=== PATIENT | female | born 1940 | race Caucasian/White ===

== ENCOUNTER 2016-12-30 16:05 | Emergency (ER) | payer MEDICARE, BC ==
--- NOTE | 2016-12-30 16:32 | EDM.PDOC ---
ED HPI GENERAL MEDICAL PROBLEM - General Chief Complaint: Chest Pain Stated Complaint: CHEST PAIN Time Seen by Provider: 12/30/16 16:22 - History of Present Illness INITIAL COMMENTS - FREE TEXT/NARRATIVE: 76-year-old female presents emergency room with chest pain. Patient has no prior history of heart problems. She developed some chest pain yesterday seems to improve somewhat with [id number] treatments, however she noticed her blood pressure was little elevated today so was a little concerned about this. This chest pain is mostly substernal in the inferior portion of the chest she did have some neck discomfort earlier today this is resolved at this point she has some substernal chest discomfort. Patient has a hiatal hernia. She's had a negative stress test but this is many years ago she does not take aspirin. The patient currently takes omeprazole. She does not smoke. Epigastric Pain Score (Numeric/FACES): 5 - Related Data Allergies Allergy/AdvReac Type Severity Reaction Status Date / Time Penicillins Allergy Cannot Verified 11/29/15 14:48 Remember atorvastatin AdvReac Muscle Verified 11/29/15 14:48 Aches Home Meds: Home Meds Fluticasone/Salmeterol [Advair 100-50] 1 puff INH BID 07/09/13 [History] Omeprazole 20 mg PO DAILY 07/09/13 [History] Multivitamin [Poly-Vitamin] 1 each PO DAILY 11/29/15 [History] Cholecalciferol (Vitamin D3) [Vitamin D] 1 tab PO DAILY 12/30/16 [History] Sucralfate [Carafate] 1 gm PO QIDACANDBED #60 tablet 12/30/16 [Rx] Past Medical History HEENT History: Reports: Impaired Vision, Other (See Below) Other HEENT History: wears glasses Respiratory History: Reports: Asthma Gastrointestinal History: Reports: GERD Genitourinary History: Reports: Urinary Incontinence 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: - Past Surgical History GI Surgical History: Reports: Appendectomy, Colonoscopy, Hernia Repair/Other Female Surgical History: Reports: Hysterectomy, Oophorectomy, Other (See Below) Social & Family History - Family History Family Medical History: Noncontributory - Tobacco Use Smoking Status *Q: Never Smoker Second Hand Smoke Exposure: No - Caffeine Use Caffeine Use: Reports: Coffee - Alcohol Use Days Per Week of Alcohol Use: 0 - Recreational Drug Use Recreational Drug Use: No ED ROS GENERAL - Review of Systems Review Of Systems: See Below Constitutional: Reports: No Symptoms HEENT: Reports: No Symptoms Respiratory: Reports: No Symptoms Cardiovascular: Reports: Chest Pain. Denies: Dyspnea on Exertion, Edema, Lightheadedness, Palpitations GI/Abdominal: Reports: Abdominal Pain (She has some epigastric discomfort at times). Denies: No Symptoms, Black Stool, Bloody Stool, Constipation, Diarrhea , Nausea, Vomiting : Reports: No Symptoms Neurological: Reports: No Symptoms ED EXAM, GENERAL - Physical Exam Exam: See Below Exam Limited By: No Limitations General Appearance: Alert, No Apparent Distress Head: Atraumatic, Normocephalic Neck: Normal Inspection, Supple, Non-Tender, Full Range of Motion Respiratory/Chest: No Respiratory Distress, Lungs Clear, Normal Breath Sounds Cardiovascular: Regular Rate, Rhythm, No Edema, No Murmur GI/Abdominal: Normal Bowel Sounds, Soft, Other (Epigastric discomfort). No: Distended, Guarding, Rigid, Rebound EKG INTERPRETATION EKG Date: 12/30/16 Rhythm: NSR P-Wave: Present QRS: Normal ST-T: Normal QT: Normal Comparison: No Change EKG Interpretation Comments: EKG no changes noted from July 2014 Course - Vital Signs Last Recorded V/S: Last Vital Signs Temp 36.5 C 12/30/16 16:15 Pulse 80 12/30/16 16:15 Resp 18 12/30/16 16:15 BP 173/89 H 12/30/16 16:15 Pulse Ox 96 12/30/16 16:15 - Orders/Labs/Meds Orders: Active Orders 24 hr Category Date Time Status EKG 12 Lead [EKG Documentation Completion] [RC] STAT Care 12/30/16 16:15 Active Chest 1V Frontal [CR] Stat Exams 12/30/16 16:44 Taken Labs: Laboratory Tests 12/30/16 12/30/16 12/30/16 Range/Units 15:25 15:25 15:25 WBC 6.20 (3.98-10.04) K/mm3 RBC 4.62 (3.98-5.22) M/mm3 Hgb 13.9 (11.2-15.7) gm/L Hct 42.1 (34.1-44.9) % MCV 91.1 (79.4-94.8) fl MCH 30.1 (25.6-32.2) pg MCHC 33.0 (32.2-35.5) g/dl RDW Std Deviation 42.0 (36.4-46.3) fL Plt Count 288 (182-369) K/mm3 MPV 9.6 (9.4-12.3) fl Neutrophils % (Manual) 47 (40-60) % Band Neutrophils % 0 (0-10) % Lymphocytes % (Manual) 41 H (20-40) % Atypical Lymphs % 0 % Monocytes % (Manual) 11 H (2-10) % Eosinophils % (Manual) 1 (0.7-5.8) % Basophils % (Manual) 0 L (0.1-1.2) Platelet Estimate Adequate Plt Morphology Comment Normal RBC Morph Comment Normal PT 10.3 (8.0-13.0) SECONDS INR 0.95 APTT 27 (22-36) SECONDS Sodium 143 (136-145) mEq/L Potassium 4.1 (3.5-5.1) mEq/L Chloride 107 (98-107) mEq/L Carbon Dioxide 27 (21-32) mEq/L Anion Gap 13.1 (5-15) BUN 20 H (7-18) mg/dL Creatinine 0.8 (0.55-1.02) mg/dL Est Cr Clr Drug Dosing 42.97 mL/min Estimated GFR (MDRD) > 60 (>60) mL/min BUN/Creatinine Ratio 25.0 H (14-18) Glucose 95 (83-115) mg/dL Calcium 9.2 (8.5-10.1) mg/dL Total Bilirubin 0.3 (0.2-1.0) mg/dL AST 25 (15-37) U/L ALT 23 (14-59) U/L Alkaline Phosphatase 60 (46-116) U/L Troponin I < 0.017 (0.00-0.056) ng/mL Total Protein 7.4 (6.4-8.2) g/dl Albumin 3.8 (3.4-5.0) g/dl Globulin 3.6 gm/dL Albumin/Globulin Ratio 1.1 (1-2) Meds: Medications Discontinued Medications Generic Name Dose Route Start Last Admin Trade Name Freq PRN Reason Stop Dose Admin Sucralfate 1 gm 12/30/16 16:45 12/30/16 16:53 Carafate PO 12/30/16 16:46 1 gm ONETIME ONE Administration Sucralfate 1 gm 12/30/16 18:14 Carafate PO 12/30/16 18:15 ONETIME ONE - Re-Assessments/Exams Free Text/Narrative Re-Assessment/Exam: 12/30/16 18:09 Patient symptoms cleared up after a dose of Carafate. Her EKG shows no acute changes. Chest x-ray shows no acute changes she does have a hiatal hernia seen on her last chest x-ray. Laboratory evaluation is unremarkable except for some mild dehydration troponin is negative. Discussed the advantages check a second troponin the patient would rather just be discharged and will be started on oral Carafate in addition to her omeprazole. She could be developing some atrophic gastritis in which case the omeprazole would not be as effective. Departure - Departure Time of Disposition: 18:12 Disposition: Home, Self-Care 01 Clinical Impression: Chest pain, Reflux gastritis Prescriptions: Sucralfate [Carafate] 1 gm PO QIDACANDBED #60 tablet Referrals: Mery Armstrong [facility] ADMINISTRATOR [Primary Care Provider] - Forms: ED Department Discharge Additional Instructions: Return to the emergency room with any questions problems worsening symptoms. Follow-up he regular provider this next week. Discuss the treatment is going for the reflux. Discussed the potential need for cardiac stress testing. Start a baby aspirin enteric-coated 81 mg daily. For your stomach you been started on Carafate take one just before each meal and at bedtime 4 times daily. Take your other medications at least an hour before or 2 hours after the Carafate - My Orders Last 24 Hours: My Active Orders 12/30/16 16:15 EKG 12 Lead [EKG Documentation Completion] [RC] STAT 12/30/16 16:44 Chest 1V Frontal [CR] Stat - Assessment/Plan Last 24 Hours: My Active Orders 12/30/16 16:15 EKG 12 Lead [EKG Documentation Completion] [RC] STAT 12/30/16 16:44 Chest 1V Frontal [CR] Stat
[2016-12-30] MEDS ORDERED: Sucralfate Suspension 1 GM/10 ML Cup PO ONE ×2 (16:45→18:14)
[2016-12-30 18:37] VITALS: BP 139/96
--- NOTE | 2016-12-31 07:14 | CR ---
Chest: Portable view of the chest was obtained. Comparison: Previous chest CT of 10/18/15 and chest x-ray of 07/29/14. Large hiatal hernia is seen. Heart size appears within normal limits for portable technique. Mild tortuosity of the thoracic aorta is seen. Lungs are clear. Mild scoliosis is noted within the spine. Scattered degenerative change is noted within the spine. Osteopenia is present. Impression: 1. Large hiatal hernia and other incidental findings. 2. Nothing acute is seen on portable chest x-ray. Diagnostic code #2
== END 2016-12-30 18:36 | disposition home or self-care (01) ==
LOC: JD.ED 16:05
DX: K29.70 Gastritis, unspecified, without bleeding (principal); K21.9 Gastro-esophageal reflux disease without esophagitis; Z88.0 Allergy status to penicillin; Z79.899 Other long term (current) drug therapy
CPT/HCPCS: 36415; 71010; 80053; 84484; 85025; 85610; 85730; 93005; 99284; A9270

== ENCOUNTER 2017-02-20 19:01 | Emergency (ER) | payer MEDICARE, BC ==
[2017-02-20 19:28] VITALS: BP 159/90
[2017-02-20] MEDS ORDERED: Sodium Chloride 0.9% 10 ML Syringe FLUSH PRN (19:42)
--- NOTE | 2017-02-20 20:26 | CT ---
CT abdomen and pelvis Technique: Multiple axial sections were obtained from above the kidneys inferiorly through the pubic symphysis. Intravenous and oral contrast was not utilized. Study has been performed as a ureteral stone protocol. Comparison: No prior abdominal CT is available. Findings: Kidneys show no abnormal calcifications. Ureters show no dilatation. No abnormal calcifications are seen along the course of the ureters. Visualized posterior lung bases are clear. Visualized portions of the liver and spleen shows no discrete abnormality. Adrenal glands show no nodule. Pancreas shows no discrete abnormality. Gallbladder contains no calcified gallstones. Atherosclerotic calcification is seen within the aorta and iliac vessels. No aneurysm is seen. No retroperitoneal adenopathy is seen. Several high density findings are seen within the right colon most likely due to ingested material. No pelvic mass or adenopathy is seen. No free fluid is identified. Slight increased stool noted within the colon. Appendix is not definitely visualized. Bone window settings were reviewed which shows severe disc space narrowing at L5-S1 with vacuum phenomena. Lesser disc space narrowing at L4-L5 with vacuum phenomena. Small amount of epidural air is seen at L4-L5 compatible with annular rupture. Impression: 1. No renal calculi, hydronephrosis or ureteral stone is seen. 2. Mild increased stool within the colon. 3. Other incidental findings. Nothing acute is appreciated on noncontrast CT study performed as a ureteral stone protocol. Diagnostic code #2
--- NOTE | 2017-02-20 20:59 | EDM.PDOC ---
ED HPI GENERAL MEDICAL PROBLEM - General Chief Complaint: Back Pain or Injury Stated Complaint: RIGHT SIDE PAIN Time Seen by Provider: 02/20/17 19:32 Source of Information: Reports: Patient History Limitations: Reports: No Limitations - History of Present Illness INITIAL COMMENTS - FREE TEXT/NARRATIVE: The patient presents with right flank and right sided abdominal pain. This started about 3pm today. She reached over to get something when it started. She denies nausea, vomiting, diarrhea, dysuria, hematuria, chest pain or shortness of breath. She has no appendix. She has no history of kidney stones. Onset: Sudden Duration: Hour(s): Location: Reports: Abdomen, Back Quality: Reports: Sharp Severity: Moderate Improves with: Reports: None Worsens with: Reports: None Associated Symptoms: Denies: Chest Pain, Cough, Fever/Chills, Nausea/Vomiting, Shortness of Breath right side/flank Pain Score (Numeric/FACES): 6 - Related Data Allergies Allergy/AdvReac Type Severity Reaction Status Date / Time Penicillins Allergy Cannot Verified 02/20/17 19:28 Remember atorvastatin AdvReac Muscle Verified 02/20/17 19:28 Aches Home Meds: Home Meds Fluticasone/Salmeterol [Advair 100-50] 1 puff INH BID 07/09/13 [History] Omeprazole 20 mg PO DAILY 07/09/13 [History] Multivitamin [Poly-Vitamin] 1 each PO DAILY 11/29/15 [History] Cholecalciferol (Vitamin D3) [Vitamin D] 1 tab PO DAILY 12/30/16 [History] Nitrofurantoin [place]/Macrocryst [Macrobid] 100 mg PO BID #10 cap 02/20/17 [Rx] [place] 3,6,9 Combination No.7 [[place] Dha] 92 mg PO DAILY 02/20/17 [History] Ubidecarenone [Coq-10] 100 mg PO DAILY 02/20/17 [History] Past Medical History HEENT History: Reports: Impaired Vision, Other (See Below) Other HEENT History: wears glasses Cardiovascular History: Reports: High Cholesterol Respiratory History: Reports: Asthma Gastrointestinal History: Reports: GERD Genitourinary History: Reports: Urinary Incontinence 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: - Past Surgical History GI Surgical History: Reports: Appendectomy, Colonoscopy, Hernia Repair/Other Female Surgical History: Reports: Hysterectomy, Oophorectomy, Other (See Below) Social & Family History - Family History Family Medical History: Noncontributory - Tobacco Use Smoking Status *Q: Never Smoker Second Hand Smoke Exposure: No - Caffeine Use Caffeine Use: Reports: Coffee - Alcohol Use Days Per Week of Alcohol Use: 0 - Recreational Drug Use Recreational Drug Use: No ED ROS GENERAL - Review of Systems Review Of Systems: See Below Constitutional: Reports: No Symptoms HEENT: Reports: No Symptoms Respiratory: Reports: No Symptoms Cardiovascular: Reports: No Symptoms Endocrine: Reports: No Symptoms GI/Abdominal: Reports: Abdominal Pain. Denies: Diarrhea, Nausea, Vomiting : Reports: No Symptoms Musculoskeletal: Reports: Back Pain (Right flank) ED EXAM,LOWER BACK PAIN/INJURY - Physical Exam Exam: See Below Exam Limited By: No Limitations General Appearance: Alert, No Apparent Distress Ears: Normal External Exam Nose: Normal Inspection Head: Atraumatic, Normocephalic Neck: Normal Inspection Respiratory/Chest: No Respiratory Distress, Lungs Clear, Normal Breath Sounds Cardiovascular: Regular Rate, Rhythm, No Edema, No Murmur GI/Abdominal: Soft, Non-Tender, No Organomegaly, No Mass Back Exam: Other (Pain upon palpation to the right flank) Extremities: Normal Inspection Neurological: Alert, No Motor/Sensory Deficits, Oriented x 3 Course - Vital Signs Last Recorded V/S: Last Vital Signs Temp 97.5 F 02/20/17 19:20 Pulse 100 02/20/17 19:20 Resp 18 02/20/17 19:20 BP 159/90 H 02/20/17 19:20 Pulse Ox 96 02/20/17 19:20 - Orders/Labs/Meds Orders: Active Orders 24 hr Category Date Time Status Peripheral IV Care [RC] . DIRECTED Care 02/20/17 19:43 Active CULTURE URINE [RM] Stat Lab 02/20/17 20:53 Uncollected Sodium Chloride 0.9% [Saline Flush] Med 02/20/17 19:42 Active 10 ml FLUSH ASDIRECTED PRN Peripheral IV Insertion Adult [OM.PC] Stat Oth 02/20/17 19:42 Ordered Medication Orders Sodium Chloride (Saline Flush) 10 ml FLUSH ASDIRECTED PRN PRN Reason: Keep Vein Open Labs: Laboratory Tests 02/20/17 02/20/17 02/20/17 Range/Units 20:00 20:00 20:00 WBC 9.37 (3.98-10.04) K/mm3 RBC 4.69 (3.98-5.22) M/mm3 Hgb 14.4 (11.2-15.7) gm/L Hct 43.1 (34.1-44.9) % MCV 91.9 (79.4-94.8) fl MCH 30.7 (25.6-32.2) pg MCHC 33.4 (32.2-35.5) g/dl RDW Std Deviation 43.2 (36.4-46.3) fL Plt Count 324 (182-369) K/mm3 MPV 9.8 (9.4-12.3) fl Neut % (Auto) 69.7 (34.0-71.1) % Lymph % (Auto) 22.2 (19.3-51.7) % [place] % (Auto) 6.7 (4.7-12.5) % Eos % (Auto) 0.9 (0.7-5.8) Baso % (Auto) 0.4 (0.1-1.2) % Neut # (Auto) 6.53 H (1.56-6.13) K/mm3 Lymph # (Auto) 2.08 (1.18-3.74) K/mm3 [place] # (Auto) 0.63 H (0.24-0.36) K/mm3 Eos # (Auto) 0.08 (0.04-0.36) K/mm3 Baso # (Auto) 0.04 (0.01-0.08) K/mm3 Sodium 140 (136-145) mEq/L Potassium 4.1 (3.5-5.1) mEq/L Chloride 104 (98-107) mEq/L Carbon Dioxide 30 (21-32) mEq/L Anion Gap 10.1 (5-15) BUN 18 (7-18) mg/dL Creatinine 0.8 (0.55-1.02) mg/dL Est Cr Clr Drug Dosing 45.14 mL/min Estimated GFR (MDRD) > 60 (>60) mL/min BUN/Creatinine Ratio 22.5 H (14-18) Glucose 112 (83-115) mg/dL Calcium 9.9 (8.5-10.1) mg/dL Total Bilirubin 0.4 (0.2-1.0) mg/dL AST 22 (15-37) U/L ALT 24 (14-59) U/L Alkaline Phosphatase 60 (46-116) U/L Total Protein 7.7 (6.4-8.2) g/dl Albumin 3.9 (3.4-5.0) g/dl Globulin 3.8 gm/dL Albumin/Globulin Ratio 1.0 (1-2) Lipase 150 (73-393) U/L Urine Color Yellow (Yellow) Urine Appearance Clear (Clear) Urine pH 6.5 (5.0-8.0) Ur Specific [place] 1.015 (1.005-1.030) Urine Protein Negative (Negative) Urine Glucose (UA) Negative (Negative) Urine Ketones Negative (Negative) Urine Occult Blood Trace-lysed H (Negative) Urine Nitrite Negative (Negative) Urine Bilirubin Negative (Negative) Urine Urobilinogen 0.2 (0.2-1.0) Ur Leukocyte Esterase 3+ H (Negative) Urine RBC 5-10 H (0-5) /hpf Urine WBC 30-40 H (0-5) /hpf Ur Epithelial Cells 0-5 (0-5) /hpf Amorphous Sediment Few H (NOT SEEN) /hpf Urine Bacteria Few (FEW) /hpf Urine Mucus Not seen (FEW) /hpf Meds: Medications Generic Name Dose Route Start Last Admin Trade Name Freq PRN Reason Stop Dose Admin Sodium Chloride 10 ml 02/20/17 19:42 Saline Flush FLUSH ASDIRECTED PRN Keep Vein Open - Re-Assessments/Exams Free Text/Narrative Re-Assessment/Exam: 02/20/17 21:00 I ordered an IV saline lock, labs, UA and a CT of her abdomen and pelvis. Her UA shows a UTI. Her CBC and CMP look good. Her CT shows no renal calculi, hydronephrosis or ureteral stone is seen. Mild increased stool within the colon. Nothing acute is appreciated on noncontrast CT study performed as a ureteral stone protocol. I will treat the patient for the UTI with macrobid. Departure - Departure Time of Disposition: 21:05 Disposition: Home, Self-Care 01 Condition: Good Clinical Impression: UTI (urinary tract infection) Qualifiers: Urinary tract infection type: acute cystitis Hematuria presence: without hematuria Qualified Code(s): N30.00 - Acute cystitis without hematuria Constipation Qualifiers: Constipation type: other constipation type Qualified Code(s): K59.09 - Other constipation - Discharge Information Prescriptions: Nitrofurantoin [place]/Macrocryst [Macrobid] 100 mg PO BID #10 cap Referrals: Mery Armstrong, TR[facility] LIN[facility] OPERATOR [Primary Care Provider] - 1 Week Additional Instructions: Drink plenty of fluids. Take tylenol or motrin for pain. Take the macrobid 2 times per day for the bladder infection. Take magnesium citrate to help have a bowel movement. Please return if you are worse. - My Orders Last 24 Hours: My Active Orders 02/20/17 19:42 Sodium Chloride 0.9% [Saline Flush] 10 ml FLUSH ASDIRECTED PRN Peripheral IV Insertion Adult [OM.PC] Stat 02/20/17 19:43 Peripheral IV Care [RC] . DIRECTED 02/20/17 20:53 CULTURE URINE [RM] Stat - Assessment/Plan Last 24 Hours: My Active Orders 02/20/17 19:42 Sodium Chloride 0.9% [Saline Flush] 10 ml FLUSH ASDIRECTED PRN Peripheral IV Insertion Adult [OM.PC] Stat 02/20/17 19:43 Peripheral IV Care [RC] . DIRECTED 02/20/17 20:53 CULTURE URINE [RM] Stat
== END 2017-02-20 21:20 | disposition home or self-care (01) ==
LOC: JD.ED 19:01
DX: N30.00 Acute cystitis without hematuria (principal); K59.09 Other constipation; E78.00 Pure hypercholesterolemia, unspecified; Z88.0 Allergy status to penicillin; Z88.8 Allergy status to other drugs, medicaments and biological substances; Z79.899 Other long term (current) drug therapy
CPT/HCPCS: 36415; 74176; 74176-26; 80053; 81001; 83690; 85025; 99284; 99284-25

== ENCOUNTER 2019-03-01 21:23 | Emergency (ER) | payer MEDICARE, BC ==
[2019-03-01 21:39] VITALS: BP 157/89; PULSE 94
[2019-03-01] MEDS ORDERED: Morphine 4 MG/ML Syringe IM ONE (21:39)
[2019-03-01] MEDS ORDERED: Ondansetron 4 MG/2 ML SDV IM ONE (21:39)
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
--- NOTE | 2019-03-02 09:18 | CR ---
Chest: 2 views of the chest were obtained. Comparison: Prior chest x-ray of . Large hiatal hernia is noted. Heart size is within normal limits. Tortuous thoracic aorta is seen. Lungs are clear with no acute parenchymal change. Bony structures are osteopenic. Scattered disc space narrowing, mild scoliosis and endplate osteophytes are seen within the spine. Impression: 1. Findings as noted above. 2. Nothing acute is appreciated. Diagnostic code #2 This report was dictated in [place] Standard Time
== END 2019-03-02 00:24 | disposition home or self-care (01) ==
LOC: JD.ED 21:23
DX: R07.89 Other chest pain (principal); J45.909 Unspecified asthma, uncomplicated; E78.00 Pure hypercholesterolemia, unspecified; K21.9 Gastro-esophageal reflux disease without esophagitis; Z79.899 Other long term (current) drug therapy; Z88.0 Allergy status to penicillin; Z88.8 Allergy status to other drugs, medicaments and biological substances
CPT/HCPCS: 36415; 71046; 84484; 93005; 96372; 99285; J2270; J2405; 93010; 99284

== ENCOUNTER 2019-03-20 07:41 | Emergency (ER) | payer MEDICARE, BC ==
[2019-03-20 07:57] VITALS: BP 154/84; PULSE 82
--- NOTE | 2019-03-20 08:09 | EDM.PDOC ---
ED HPI GENERAL MEDICAL PROBLEM - General Chief Complaint: Lower Extremity Injury/Pain Stated Complaint: LT KNEE PAIN Time Seen by Provider: 03/20/19 07:50 Source of Information: Reports: Patient History Limitations: Reports: No Limitations - History of Present Illness INITIAL COMMENTS - FREE TEXT/NARRATIVE: Patient is a 78-year-old female who presents with complaints of left knee pain that started yesterday morning upon waking. She states the pain is worse when she goes from a sitting to standing position and she feels like her leg may give out on her. She has no history of arthritis that she is aware of, however she does have a history of Lyons's cyst in that knee. She also denies a hx of blood clots. She describes the pain as aching and is worse on the posterior aspect of her knee. The pain radiates upward. She denies any known injury to the knee. She has not fallen or twisted it that she is aware of. Left Knee Pain Score (Numeric/FACES): 6 - Related Data Allergies Allergy/AdvReac Type Severity Reaction Status Date / Time Penicillins Allergy Cannot Verified 03/20/19 07:53 Remember atorvastatin AdvReac Muscle Verified 03/20/19 07:53 Aches Home Meds: Home Meds Fluticasone/Salmeterol [Advair 100-50] 1 puff INH BID 07/09/13 [History] Omeprazole 20 mg PO DAILY 07/09/13 [History] Multivitamin [Poly-Vitamin] 1 each PO DAILY 11/29/15 [History] Cholecalciferol (Vitamin D3) [Vitamin D] 1 tab PO DAILY 12/30/16 [History] [place] 3,6,9 Combination No.7 [[place] Dha] 92 mg PO DAILY 02/20/17 [History] Ubidecarenone [Coq-10] 100 mg PO DAILY 02/20/17 [History] Acetaminophen/HYDROcodone [[place] 325-5 MG] 1 tab PO Q6H PRN #6 tablet 03/02/19 [ Rx] Past Medical History HEENT History: Reports: Impaired Vision, Other (See Below) Other HEENT History: wears glasses Cardiovascular History: Reports: High Cholesterol Respiratory History: Reports: Asthma Gastrointestinal History: Reports: GERD Other Gastrointestinal History: hiatial hernia Genitourinary History: Reports: Urinary Incontinence 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 ED EXAM, GENERAL - Physical Exam Exam: See Below Exam Limited By: No Limitations General Appearance: Alert, WD/WN, No Apparent Distress Respiratory/Chest: No Respiratory Distress, Lungs Clear, Normal Breath Sounds, No Accessory Muscle Use, Chest Non-Tender Cardiovascular: Normal Peripheral Pulses, Regular Rate, Rhythm, No Edema, No Murmur Extremities: Normal Inspection, Normal Range of Motion, Other (Left knee tender in the popliteal fossa. No obvious swelling to the knee. No redness or warmth noted.) Neurological: Alert, Oriented, Normal Cognition Psychiatric: Normal Affect, Normal Mood Skin Exam: Warm, Dry, Intact, Normal Color, No Rash Course - Vital Signs Last Recorded V/S: Last Vital Signs Temp 97.5 F 03/20/19 07:55 Pulse 82 03/20/19 07:55 Resp 15 03/20/19 07:55 BP 154/84 H 03/20/19 07:55 Pulse Ox 100 03/20/19 07:55 - Re-Assessments/Exams Free Text/Narrative Re-Assessment/Exam: I have ordered an x-ray of the left knee as well as a venous Doppler ultrasound. Patient denies the need for any analgesics at this time. 03/20/19 09:43 X-ray report shows degenerative changes as well as a questionable minimal joint effusion. Ultrasound shows a large popliteal cyst. I discussed with the patient the findings. I will refer her to Dr. Villavicencio for possible drainage of that cyst or steroid injection of the knee. She will call to schedule an appointment with him. Departure - Departure Time of Disposition: 09:44 Disposition: Home, Self-Care 01 Condition: Fair Clinical Impression: Knee pain, left Qualifiers: Chronicity: acute Qualified Code(s): M25.562 - Pain in left knee - Discharge Information *PRESCRIPTION DRUG MONITORING PROGRAM REVIEWED*: No *COPY OF PRESCRIPTION DRUG MONITORING REPORT IN PATIENT JASON: No Instructions: Knee Pain, Adult Referrals: Mery Armstrong NP [Primary Care Provider] - Silvino Villavicencio MD [Physician] - Forms: ED Department Discharge Additional Instructions: You were seen in the emergency Department today with complaints of pain to her left knee that started yesterday morning. An x-ray and an ultrasound of the knee was done. The x-ray did show some degenerative changes suggesting that there is arthritis in the knee. The ultrasound did also show a large popliteal cyst; however, there was no evidence of a blood clot. I do recommend that you follow up with orthopedic surgeon, Dr. Villavicencio. The phone number to schedule with him is listed below. In the meantime you may use tkof-sxp-owvihyt ibuprofen and ice to the joint as needed. If you should experience any worsening symptoms , please not hesitate to return to the emergency department or follow-up with her primary care provider. Sepsis Event Note - Evaluation Sepsis Screening Result: No Definite Risk - Focused Exam Vital Signs: Vital Signs Temp Pulse Resp BP Pulse Ox 03/20/19 07:55 97.5 F 82 15 154/84 H 100 Date Exam was Performed: 03/20/19 Time Exam was Performed: 11:56
--- NOTE | 2019-03-20 09:07 | CR ---
Left knee: Four views of the left knee were obtained. Comparison: No prior left knee imaging. Fairly severe medial joint space narrowing is noted. Chondrocalcinosis is noted within the medial and lateral menisci. Osteophytes are seen primarily off the medial joint. Smaller osteophytes are noted off the patella. Questionable minimal joint effusion. Osteopenia is present. Impression: 1. Degenerative change as noted above. 2. Questionable minimal joint effusion. Diagnostic code #3 This report was dictated in [place] Standard Time
--- NOTE | 2019-03-20 09:42 | US ---
Left lower extremity deep venous ultrasound: Duplex and color flow imaging was obtained of the left common femoral, superficial femoral, popliteal, posterior tibial and peroneal veins. Proximal greater saphenous vein also evaluated. Right common femoral vein also evaluated. Comparison: No prior venous imaging is available. Findings: Popliteal cyst is noted on the left side measuring 9.5 x 4.4 x 3.2 cm. Normal phasic flow, augmentation and compression is seen. Impression: 1. Large popliteal cyst on the left side. 2. No evidence of deep venous thrombosis within left lower extremity or within the right common femoral vein. Diagnostic code #2 This report was dictated in [place] Standard Time
== END 2019-03-20 10:11 | disposition home or self-care (01) ==
LOC: JD.ED 07:41
DX: M25.562 Pain in left knee (principal); K21.9 Gastro-esophageal reflux disease without esophagitis; J45.909 Unspecified asthma, uncomplicated; Z88.0 Allergy status to penicillin; Z88.8 Allergy status to other drugs, medicaments and biological substances; Z79.899 Other long term (current) drug therapy
CPT/HCPCS: 73564-26-LT; 73564-LT; 93971-26-LT; 93971-LT; 99282; 99284-25

== ENCOUNTER 2020-04-28 06:40 | Emergency (ER) | payer MEDICARE, BC ==
[2020-04-28 06:54] VITALS: BP 163/104; PULSE 85
[2020-04-28] MEDS ORDERED: Sodium Chloride 0.9% 10 ML Syringe FLUSH PRN (07:13)
--- NOTE | 2020-04-28 07:30 | EDM.PDOC ---
ED HPI GENERAL MEDICAL PROBLEM - General Chief Complaint: Respiratory Problem Stated Complaint: CHEST PAIN AND SOB Time Seen by Provider: 04/28/20 07:00 Source of Information: Reports: Patient, RN Notes Reviewed - History of Present Illness INITIAL COMMENTS - FREE TEXT/NARRATIVE: 79 yr old female with onset of shortness of breath about 2 days ago that worsened last evening and during the night. Has not been ill with cough, fever or chills. Hx of asthma. No hx of CAD or CHF. Mild upper mid abd discomfort, hx of GERD. Has also had some mild bilat shoulder discomfort during the night. No nausea or vomiting. Denies significant pain or trouble breathing at time of exam. Chest Pain Score (Numeric/FACES): 2 - Related Data Allergies Allergy/AdvReac Type Severity Reaction Status Date / Time Penicillins Allergy Cannot Verified 04/28/20 06:54 Remember atorvastatin AdvReac Muscle Verified 04/28/20 06:54 Aches Home Meds: Home Meds Fluticasone/Salmeterol [Advair 100-50] 1 puff INH BID 07/09/13 [History] Omeprazole 20 mg PO DAILY 07/09/13 [History] Multivitamin [Poly-Vitamin] 1 each PO DAILY 11/29/15 [History] Cholecalciferol (Vitamin D3) [Vitamin D] 1 tab PO DAILY 12/30/16 [History] [place] 3,6,9 Combination No.7 [[place] Dha] 92 mg PO DAILY 02/20/17 [History] Ubidecarenone [Coq-10] 100 mg PO DAILY 02/20/17 [History] Acetaminophen/HYDROcodone [[place] 325-5 MG] 1 tab PO Q6H PRN #6 tablet 03/02/19 [Rx] Past Medical History HEENT History: Reports: Impaired Vision, Other (See Below) Other HEENT History: wears glasses Cardiovascular History: Reports: High Cholesterol Respiratory History: Reports: Asthma Gastrointestinal History: Reports: GERD Other Gastrointestinal History: hiatial hernia Genitourinary History: Reports: Urinary Incontinence 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: - Past Surgical History GI Surgical History: Reports: Appendectomy, Colonoscopy, Hernia Repair/Other Female Surgical History: Reports: Hysterectomy, Oophorectomy, Other (See Below) Social & Family History - Family History Family Medical History: No Pertinent Family History - Tobacco Use Tobacco Use Status *Q: Never Tobacco User - Caffeine Use Caffeine Use: Reports: Coffee - Recreational Drug Use Recreational Drug Use: No ED ROS GENERAL - Review of Systems Review Of Systems: See Below Constitutional: Denies: Fever, Chills, Diaphoresis HEENT: Reports: No Symptoms Respiratory: Reports: Shortness of Breath. Denies: Pleuritic Chest Pain, Cough Cardiovascular: Denies: Chest Pain GI/Abdominal: Denies: Abdominal Pain, Nausea, Vomiting Musculoskeletal: Reports: Shoulder Pain Neurological: Reports: No Symptoms ED EXAM, GENERAL - Physical Exam Exam: See Below General Appearance: Alert, No Apparent Distress Eye Exam: Bilateral Eye: PERRL Throat/Mouth: Normal Inspection Head: Atraumatic. No: Facial Swelling Neck: Supple, Other (No JVD) Respiratory/Chest: No Respiratory Distress, Lungs Clear, Normal Breath Sounds. No: Rales, Rhonchi, Wheezing Cardiovascular: Regular Rate, Rhythm GI/Abdominal: Soft, Non-Tender Extremities: Normal Inspection, Normal Range of Motion. No: Pedal Edema, Leg Pain, Increased Warmth, Redness Neurological: Alert, Oriented, No Motor/Sensory Deficits #1 Interpretation EKG Date: 04/28/20 Rhythm: Other (sinus tachycardia) Rate (Beats/Min): 102 [place]: LAD-Left [place] Deviation P-Wave: Present QRS: Normal ST-T: Normal Course - Vital Signs Last Recorded V/S: Last Vital Signs Temp 96.9 F 04/28/20 06:48 Pulse 85 04/28/20 06:48 Resp 20 04/28/20 06:48 BP 163/104 H 04/28/20 06:48 Pulse Ox 97 04/28/20 06:48 - Orders/Labs/Meds Orders: Active Orders 24 hr Category Date Time Status Peripheral IV Insertion Adult [OM.PC] Stat Oth 04/28/20 07:13 Ordered Labs: Laboratory Tests 04/28/20 04/28/20 04/28/20 Range/Units 07:25 07:25 07:25 WBC 5.12 (3.98-10.04) K/mm3 RBC 4.51 (3.98-5.22) M/mm3 Hgb 13.7 (11.2-15.7) gm/dl Hct 42.3 (34.1-44.9) % MCV 93.8 (79.4-94.8) fl MCH 30.4 (25.6-32.2) pg MCHC 32.4 (32.2-35.5) g/dl RDW Std Deviation 42.5 (36.4-46.3) fL Plt Count 347 (182-369) K/mm3 MPV 9.4 (9.4-12.3) fl Neut % (Auto) 58.5 (34.0-71.1) % Lymph % (Auto) 29.7 (19.3-51.7) % [place] % (Auto) 9.6 (4.7-12.5) % Eos % (Auto) 1.0 (0.7-5.8) Baso % (Auto) 1.0 (0.1-1.2) % Neut # (Auto) 3.00 (1.56-6.13) K/mm3 Lymph # (Auto) 1.52 (1.18-3.74) K/mm3 [place] # (Auto) 0.49 H (0.24-0.36) K/mm3 Eos # (Auto) 0.05 (0.04-0.36) K/mm3 Baso # (Auto) 0.05 (0.01-0.08) K/mm3 Sodium 142 (136-145) mEq/L Potassium 4.2 (3.5-5.1) mEq/L Chloride 104 (98-107) mEq/L Carbon Dioxide 30 (21-32) mEq/L Anion Gap 12.2 (5-15) BUN 14 (7-18) mg/dL Creatinine 0.8 (0.55-1.02) mg/dL Est Cr Clr Drug Dosing TNP Estimated GFR (MDRD) > 60 (>60) mL/min BUN/Creatinine Ratio 17.5 (14-18) Glucose 97 (83-115) mg/dL Calcium 9.4 (8.5-10.1) mg/dL Total Bilirubin 0.5 (0.2-1.0) mg/dL AST 21 (15-37) U/L ALT 24 (14-59) U/L Alkaline Phosphatase 61 (46-116) U/L Troponin I < 0.017 (0.00-0.056) ng/mL NT-Pro-B Natriuret Pep 172 (0-450) pg/mL Total Protein 7.1 (6.4-8.2) g/dl Albumin 3.5 (3.4-5.0) g/dl Globulin 3.6 gm/dL Albumin/Globulin Ratio 1.0 (1-2) Meds: Medications Discontinued Medications Generic Name Dose Route Start Last Admin Trade Name Freq PRN Reason Stop Dose Admin Sodium Chloride 10 ml 04/28/20 07:13 Saline Flush FLUSH ASDIRECTED PRN Keep Vein Open - Re-Assessments/Exams Free Text/Narrative Re-Assessment/Exam: 04/28/20 09:24 trop nl, CXR shows large stable hitatal hernia, unchanged from prior exam, labs otherwise nl. Sats 98 to 100 per cent at time of exam and at time of discharge. Discharge instr. as documented. Departure - Departure Time of Disposition: 08:44 Disposition: Home, Self-Care 01 Condition: Fair Clinical Impression: Atypical chest pain, Hiatal hernia Dyspnea Qualifiers: Dyspnea type: shortness of breath Qualified Code(s): R06.02 - Shortness of breath GERD (gastroesophageal reflux disease) Qualifiers: Esophagitis presence: esophagitis presence not specified Qualified Code(s): K21.9 - Gastro-esophageal reflux disease without esophagitis - Discharge Information Instructions: Hiatal Hernia, Nonspecific Chest Pain, Adult, Shortness of Breath, Adult, Gastroesophageal Reflux Disease, Adult Referrals: Mery Armstrong THERAPY TEACHER [Primary Care Provider] - Forms: ED Department Discharge Additional Instructions: Continue current medications. Maalox or mylanta 3 to 4 times daily in addition if needed for severe reflux discomfort. See Angela tomorrow or early next week. Return to ED as needed if symptoms worsening in any way as discussed. Sepsis Event Note (ED) - Evaluation Sepsis Screening Result: No Definite Risk - Focused Exam Vital Signs: Vital Signs Temp Pulse Resp BP Pulse Ox 04/28/20 06:48 96.9 F 85 20 163/104 H 97 - My Orders Last 24 Hours: My Active Orders 04/28/20 07:13 Peripheral IV Insertion Adult [OM.PC] Stat - Assessment/Plan Last 24 Hours: My Active Orders 04/28/20 07:13 Peripheral IV Insertion Adult [OM.PC] Stat
--- NOTE | 2020-04-28 07:58 | CR ---
Chest: Portable view of the chest was obtained. Comparison: Prior chest x-ray of 03/01/19. Large hiatal hernia is noted. Heart size and mediastinum are within normal limits for portable technique. Lungs show no acute parenchymal change. No acute osseous finding is appreciated. Impression: 1. Large hiatal hernia which is stable from prior exam. 2. Nothing acute is seen. Diagnostic code #2
== END 2020-04-28 08:53 | disposition home or self-care (01) ==
LOC: JD.ED 06:40
DX: R06.02 Shortness of breath (principal); K21.9 Gastro-esophageal reflux disease without esophagitis; K44.9 Diaphragmatic hernia without obstruction or gangrene; J45.909 Unspecified asthma, uncomplicated; Z79.899 Other long term (current) drug therapy; Z88.0 Allergy status to penicillin; Z88.8 Allergy status to other drugs, medicaments and biological substances
CPT/HCPCS: 36415; 71045; 71045-26; 80053; 83880; 84484; 85025; 93005; 93010; 99284; 99285-25

== ENCOUNTER 2021-01-25 21:31 | Inpatient (IN) | payer MEDICARE, BC ==
--- NOTE | 2021-01-25 22:26 | EDM.PDOC ---
ED HPI GENERAL MEDICAL PROBLEM - General Chief Complaint: Respiratory Problem Stated Complaint: COUGH/SOB Time Seen by Provider: 01/25/21 22:19 - History of Present Illness INITIAL COMMENTS - FREE TEXT/NARRATIVE: 80-year-old female presents the emergency room with breathing difficulties cough and shortness of breath. This is been going on for the last several days. Yesterday she was tested for Covid this was found to be negative. Her condition just continues to get worse she has a cough minimally productive. Patient does have underlying asthma. She is not aware of any fevers or chills. She is not had significant chest pain or chest pressure with this. No gastrointestinal symptoms. - Related Data Allergies Allergy/AdvReac Type Severity Reaction Status Date / Time Penicillins Allergy Cannot Verified 01/25/21 21:58 Remember atorvastatin AdvReac Muscle Verified 01/25/21 21:58 Aches Home Meds: Home Meds Fluticasone/Salmeterol [Advair 100-50] 1 puff INH BID 07/09/13 [History] Omeprazole 20 mg PO DAILY 07/09/13 [History] Multivitamin [Poly-Vitamin] 1 each PO DAILY 11/29/15 [History] Cholecalciferol (Vitamin D3) [Vitamin D] 1 tab PO DAILY 12/30/16 [History] [place] 3,6,9 Combination No.7 [[place] Dha] 92 mg PO DAILY 02/20/17 [History] Ubidecarenone [Coq-10] 100 mg PO DAILY 02/20/17 [History] Acetaminophen/HYDROcodone [[place] 325-5 MG] 1 tab PO Q6H PRN #6 tablet 03/02/19 [Rx] Past Medical History HEENT History: Reports: Impaired Vision, Other (See Below) Other HEENT History: wears glasses Cardiovascular History: Reports: High Cholesterol Respiratory History: Reports: Asthma Gastrointestinal History: Reports: GERD Other Gastrointestinal History: hiatial hernia Genitourinary History: Reports: Urinary Incontinence [employer]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: - Past Surgical History HEENT Surgical History: Reports: Cataract Surgery Other HEENT Surgeries/Procedures: 1958 GI Surgical History: Reports: Appendectomy, Colonoscopy, Hernia Repair/Other Female Surgical History: Reports: Hysterectomy, Oophorectomy, Other (See Below) Other Female Surgeries/Procedures: bladder surgery Social & Family History - Family History Family Medical History: No Pertinent Family History - Tobacco Use Tobacco Use Status *Q: Never Tobacco User - Caffeine Use Caffeine Use: Reports: Coffee ED ROS GENERAL - Review of Systems Review Of Systems: See Below Constitutional: Reports: No Symptoms HEENT: Reports: No Symptoms Respiratory: Reports: Shortness of Breath, Wheezing, Cough, Sputum. Denies: No Symptoms, Hemoptysis Cardiovascular: Reports: No Symptoms Endocrine: Reports: No Symptoms GI/Abdominal: Reports: No Symptoms : Reports: No Symptoms Musculoskeletal: Reports: No Symptoms Skin: Reports: No Symptoms Neurological: Reports: No Symptoms ED EXAM, GENERAL - Physical Exam Exam: See Below Exam Limited By: No Limitations General Appearance: Alert, No Apparent Distress, Other (On check-in her O2 saturation was 88% during my exam she was 93% on room air) Eye Exam: Bilateral Eye: Normal Inspection Nose: Normal Inspection, Normal Mucosa, No Blood Throat/Mouth: Normal Inspection, Normal Lips, Normal Teeth, Normal Gums, Normal Oropharynx, Normal Voice, No Airway Compromise Head: Atraumatic, Normocephalic Neck: Normal Inspection, Supple, Non-Tender, Full Range of Motion Respiratory/Chest: No Respiratory Distress, Lungs Clear, Normal Breath Sounds Cardiovascular: Regular Rate, Rhythm, No Edema, No Murmur GI/Abdominal: Normal Bowel Sounds, Soft, Non-Tender Back Exam: Normal Inspection. No: CVA Tenderness (L), CVA Tenderness (R) Neurological: Alert, Oriented, Normal Cognition Psychiatric: Normal Affect, Normal Mood Skin Exam: Warm, Dry, Intact #1 Interpretation EKG Date: 01/26/21 Rhythm: NSR [place]: Normal P-Wave: Present QRS: Other (Low voltage extremity leads) ST-T: Normal QT: Normal Comparison: No Change (No significant change from EKG done on April 28, 2020) EKG Interpretation Comments: Abnormal EKG Course - Vital Signs Last Recorded V/S: Last Vital Signs Temp 37.9 C 01/25/21 21:47 Pulse 117 H 01/25/21 21:47 Resp 28 H 01/25/21 21:47 BP 156/52 H 01/25/21 21:47 Pulse Ox 94 L 01/25/21 22:45 - Orders/Labs/Meds Orders: Active Orders 24 hr Category Date Time Status Patient Status [ADT] Routine ADT 01/26/21 03:01 Active Bedrest Bedside Commode [RC] ASDIRECTED Care 01/26/21 03:00 Active Cardiac Monitoring [RC] CONTINUOUS Care 01/26/21 03:03 Active Intake and Output [RC] QSHIFT Care 01/26/21 03:03 Active Oxygen Therapy [RC] PRN Care 01/26/21 03:01 Active Pulse Oximetry [RC] CONTINUOUS Care 01/26/21 03:03 Active RT Aerosol Therapy [RC] ASDIRECTED Care 01/25/21 22:28 Active RT Aerosol Therapy [RC] ASDIRECTED Care 01/26/21 03:07 Active VTE/DVT Education [RC] PER UNIT ROUTINE Care 01/26/21 03:01 Active Vital Signs [RC] Q4H Care 01/26/21 03:01 Active OT Evaluation and Treatment [CONS] Routine Cons 01/26/21 03:00 Active PT Evaluation and Treatment [CONS] Routine Cons 01/26/21 03:00 Active Regular Diet [DIET] Diet 01/26/21 Breakfast Active Ang Chest [CT] Stat Exams 01/25/21 23:54 Taken Chest 1V Frontal [CR] Stat Exams 01/25/21 22:25 Taken CBC WITH AUTO DIFF [HEME] DAILY Lab 01/27/21 05:00 Ordered CBC WITH AUTO DIFF [HEME] DAILY Lab 01/28/21 05:00 Ordered CBC WITH AUTO DIFF [HEME] DAILY Lab 01/29/21 05:00 Ordered CBC WITH AUTO DIFF [HEME] DAILY Lab 01/30/21 05:00 Ordered CBC WITH AUTO DIFF [HEME] DAILY Lab 01/31/21 05:00 Ordered COMPREHENSIVE METABOLIC PN,CMP [CHEM] DAILY Lab 01/27/21 05:00 Ordered COMPREHENSIVE METABOLIC PN,CMP [CHEM] DAILY Lab 01/28/21 05:00 Ordered COMPREHENSIVE METABOLIC PN,CMP [CHEM] DAILY Lab 01/29/21 05:00 Ordered COMPREHENSIVE METABOLIC PN,CMP [CHEM] DAILY Lab 01/30/21 05:00 Ordered COMPREHENSIVE METABOLIC PN,CMP [CHEM] DAILY Lab 01/31/21 05:00 Ordered MAGNESIUM [CHEM] Routine Lab 01/27/21 05:00 Ordered TROPONIN I [CHEM] DAILY Lab 01/27/21 05:00 Ordered Acetaminophen [TylenoL] Med 01/26/21 03:00 Active 650 mg PO Q6H PRN Albuterol/Ipratropium [DuoNeb 3.0-0.5 MG/3 ML] Med 01/26/21 03:00 Active 3 ml NEB Q4H PRN Morphine Med 01/26/21 03:00 Active 2 mg IVPUSH Q4H PRN Promethazine [Phenergan] 6.25 mg Med 01/26/21 03:00 Active Sodium Chloride 0.9% [Normal Saline] 50 ml IV Q6H Resuscitation Status Routine Resus Stat 01/26/21 03:00 Ordered Medication Orders Acetaminophen (Acetaminophen 325 Mg Tab) 650 mg PO Q6H PRN PRN Reason: Pain (Mild 1-3)/fever Hydrocodone Bitart/Acetaminophen (Acetaminophen/Hydrocodone 325-5 Mg Tab) 1 tab PO Q6H PRN PRN Reason: Pain (severe 7-10) Albuterol/Ipratropium (Albuterol/Ipratropium 3.0-0.5 Mg/3 Ml Neb Soln) 3 ml NEB Q4H PRN PRN Reason: Shortness Of Breath/wheezing Cholecalciferol (Cholecalciferol (Vitamin D3) 5,000 Unit Tab) 5,000 unit PO DAILY DIAMOND Hydralazine HCl (Hydralazine 20 Mg/Ml Sdv) 10 mg IVPUSH Q4H PRN PRN Reason: Hypertension Promethazine HCl 6.25 mg/ (Sodium Chloride) 50.25 mls @ 100 mls/hr IV Q6H PRN PRN Reason: Nausea/Vomiting Heparin Sodium/Dextrose (Heparin 25,000 Units In D5w 500 Ml) 25,000 units in 500 mls @ 0 mls/hr IV TITRATE DIAMOND; Protocol Mometasone Furoate/Formoterol Fumar (Formoterol/Mometasone 100-5 Mcg 8.8 Gm Inhaler) 2 puff IH BID DIAMOND Morphine Sulfate (Morphine 2 Mg/Ml Syringe) 2 mg IVPUSH Q4H PRN PRN Reason: Pain (severe 7-10) Stop: 01/27/21 03:06 Pantoprazole Sodium (Pantoprazole 40 Mg Tab.Cr) 40 mg PO DAILY@0700 [facility] Labs: Laboratory Tests 01/25/21 01/25/21 01/25/21 Range/Units 21:49 22:40 22:40 WBC 10.41 H (3.98-10.04) K/mm3 RBC 4.17 (3.98-5.22) M/mm3 Hgb 12.8 (11.2-15.7) gm/dl Hct 38.6 (34.1-44.9) % MCV 92.6 (79.4-94.8) fl MCH 30.7 (25.6-32.2) pg MCHC 33.2 (32.2-35.5) g/dl RDW Std Deviation 40.8 (36.4-46.3) fL Plt Count 297 (182-369) K/mm3 MPV 9.4 (9.4-12.3) fl Neut % (Auto) 74.4 H (34.0-71.1) % Lymph % (Auto) 13.2 L (19.3-51.7) % Clinch % (Auto) 11.4 (4.7-12.5) % Eos % (Auto) 0.4 L (0.7-5.8) Baso % (Auto) 0.3 (0.1-1.2) % Neut # (Auto) 7.75 H (1.56-6.13) K/mm3 Lymph # (Auto) 1.37 (1.18-3.74) K/mm3 Clinch # (Auto) 1.19 H (0.24-0.36) K/mm3 Eos # (Auto) 0.04 (0.04-0.36) K/mm3 Baso # (Auto) 0.03 (0.01-0.08) K/mm3 PT (9.7-12.0) SECONDS INR APTT (21.7-31.4) SECONDS D-Dimer, Quantitative (0.19-0.50) mg/L Sodium (136-145) mEq/L Potassium (3.5-5.1) mEq/L Chloride (98-107) mEq/L Carbon Dioxide (21-32) mEq/L Anion Gap (5-15) BUN (7-18) mg/dL Creatinine (0.55-1.02) mg/dL Est Cr Clr Drug Dosing Estimated GFR (MDRD) (>60) mL/min BUN/Creatinine Ratio (14-18) Glucose (70-99) mg/dL Calcium (8.5-10.1) mg/dL Total Bilirubin (0.2-1.0) mg/dL AST (15-37) U/L ALT (14-59) U/L Alkaline Phosphatase (46-116) U/L Troponin I (0.00-0.056) ng/mL C-Reactive Protein 4.8 H* (<1.0) mg/dL Total Protein (6.4-8.2) g/dl Albumin (3.4-5.0) g/dl Globulin gm/dL Albumin/Globulin Ratio (1-2) Influenza Type A RNA Negative (NEGATIVE) Influenza Type B RNA Negative (NEGATIVE) Mycoplasma pneumon IgM (NEGATIVE) SARS-CoV-2 RNA (GILLIAN) Negative (NEGATIVE) 01/25/21 01/25/21 01/25/21 Range/Units 22:40 23:00 23:00 WBC (3.98-10.04) K/mm3 RBC (3.98-5.22) M/mm3 Hgb (11.2-15.7) gm/dl Hct (34.1-44.9) % MCV (79.4-94.8) fl MCH (25.6-32.2) pg MCHC (32.2-35.5) g/dl RDW Std Deviation (36.4-46.3) fL Plt Count (182-369) K/mm3 MPV (9.4-12.3) fl Neut % (Auto) (34.0-71.1) % Lymph % (Auto) (19.3-51.7) % Clinch % (Auto) (4.7-12.5) % Eos % (Auto) (0.7-5.8) Baso % (Auto) (0.1-1.2) % Neut # (Auto) (1.56-6.13) K/mm3 Lymph # (Auto) (1.18-3.74) K/mm3 Clinch # (Auto) (0.24-0.36) K/mm3 Eos # (Auto) (0.04-0.36) K/mm3 Baso # (Auto) (0.01-0.08) K/mm3 PT (9.7-12.0) SECONDS INR APTT (21.7-31.4) SECONDS D-Dimer, Quantitative 7.48 H (0.19-0.50) mg/L Sodium 138 (136-145) mEq/L Potassium 3.3 L (3.5-5.1) mEq/L Chloride 102 (98-107) mEq/L Carbon Dioxide 28 (21-32) mEq/L Anion Gap 11.3 (5-15) BUN 11 (7-18) mg/dL Creatinine 0.6 (0.55-1.02) mg/dL Est Cr Clr Drug Dosing TNP Estimated GFR (MDRD) > 60 (>60) mL/min BUN/Creatinine Ratio 18.3 H (14-18) Glucose 113 H (70-99) mg/dL Calcium 8.5 (8.5-10.1) mg/dL Total Bilirubin 0.5 (0.2-1.0) mg/dL AST 18 (15-37) U/L ALT 18 (14-59) U/L Alkaline Phosphatase 56 (46-116) U/L Troponin I < 0.017 (0.00-0.056) ng/mL C-Reactive Protein (<1.0) mg/dL Total Protein 6.6 (6.4-8.2) g/dl Albumin 2.9 L (3.4-5.0) g/dl Globulin 3.7 gm/dL Albumin/Globulin Ratio 0.8 L (1-2) Influenza Type A RNA (NEGATIVE) Influenza Type B RNA (NEGATIVE) Mycoplasma pneumon IgM Negative (NEGATIVE) SARS-CoV-2 RNA (GILLIAN) (NEGATIVE) 01/26/21 Range/Units 02:45 WBC (3.98-10.04) K/mm3 RBC (3.98-5.22) M/mm3 Hgb (11.2-15.7) gm/dl Hct (34.1-44.9) % MCV (79.4-94.8) fl MCH (25.6-32.2) pg MCHC (32.2-35.5) g/dl RDW Std Deviation (36.4-46.3) fL Plt Count (182-369) K/mm3 MPV (9.4-12.3) fl Neut % (Auto) (34.0-71.1) % Lymph % (Auto) (19.3-51.7) % Clinch % (Auto) (4.7-12.5) % Eos % (Auto) (0.7-5.8) Baso % (Auto) (0.1-1.2) % Neut # (Auto) (1.56-6.13) K/mm3 Lymph # (Auto) (1.18-3.74) K/mm3 Clinch # (Auto) (0.24-0.36) K/mm3 Eos # (Auto) (0.04-0.36) K/mm3 Baso # (Auto) (0.01-0.08) K/mm3 PT 11.3 (9.7-12.0) SECONDS INR 1.02 APTT 28.8 (21.7-31.4) SECONDS D-Dimer, Quantitative (0.19-0.50) mg/L Sodium (136-145) mEq/L Potassium (3.5-5.1) mEq/L Chloride (98-107) mEq/L Carbon Dioxide (21-32) mEq/L Anion Gap (5-15) BUN (7-18) mg/dL Creatinine (0.55-1.02) mg/dL Est Cr Clr Drug Dosing Estimated GFR (MDRD) (>60) mL/min BUN/Creatinine Ratio (14-18) Glucose (70-99) mg/dL Calcium (8.5-10.1) mg/dL Total Bilirubin (0.2-1.0) mg/dL AST (15-37) U/L ALT (14-59) U/L Alkaline Phosphatase (46-116) U/L Troponin I (0.00-0.056) ng/mL C-Reactive Protein (<1.0) mg/dL Total Protein (6.4-8.2) g/dl Albumin (3.4-5.0) g/dl Globulin gm/dL Albumin/Globulin Ratio (1-2) Influenza Type A RNA (NEGATIVE) Influenza Type B RNA (NEGATIVE) Mycoplasma pneumon IgM (NEGATIVE) SARS-CoV-2 RNA (GILLIAN) (NEGATIVE) Meds: Medications Generic Name Dose Route Start Last Admin Trade Name Freq PRN Reason Stop Dose Admin Acetaminophen 650 mg 01/26/21 03:00 Acetaminophen 325 Mg Tab PO Q6H PRN Pain (Mild 1-3)/fever Hydrocodone Bitart/Acetaminophen 1 tab 01/26/21 03:09 Acetaminophen/Hydrocodone 325-5 Mg Tab PO Q6H PRN Pain (severe 7-10) Albuterol/Ipratropium 3 ml 01/26/21 03:00 Albuterol/Ipratropium 3.0-0.5 Mg/3 Ml Neb Soln NEB Q4H PRN Shortness Of Breath/wheezing Cholecalciferol 5,000 unit 01/26/21 09:00 Cholecalciferol (Vitamin D3) 5,000 Unit Tab PO DAILY DIAMOND Hydralazine HCl 10 mg 01/26/21 03:10 Hydralazine 20 Mg/Ml Sdv IVPUSH Q4H PRN Hypertension Promethazine HCl 6.25 mg/ 50.25 mls @ 100 mls/hr 01/26/21 03:00 Sodium Chloride IV Q6H PRN Nausea/Vomiting Heparin Sodium/Dextrose 25,000 units in 500 mls @ 0 mls/hr 01/26/21 03:30 Heparin 25,000 Units In D5w 500 Ml IV TITRATE DIAMOND Protocol 18 UNITS/KG/HR Mometasone Furoate/Formoterol Fumar 2 puff 01/26/21 09:00 Formoterol/Mometasone 100-5 Mcg 8.8 Gm Inhaler IH BID [facility] Morphine Sulfate 2 mg 01/26/21 03:00 Morphine 2 Mg/Ml Syringe IVPUSH 01/27/21 03:06 Q4H PRN Pain (severe 7-10) Pantoprazole Sodium 40 mg 01/26/21 07:00 Pantoprazole 40 Mg Tab.Cr PO DAILY@0700 [facility] Discontinued Medications Generic Name Dose Route Start Last Admin Trade Name Freq PRN Reason Stop Dose Admin Albuterol/Ipratropium 3 ml 01/25/21 22:27 01/25/21 22:44 Albuterol/Ipratropium 3.0-0.5 Mg/3 Ml Neb Soln NEB 01/25/21 22:28 3 ml ONETIME ONE Administration Albuterol/Ipratropium Confirm 01/25/21 22:41 01/26/21 00:23 Albuterol/Ipratropium 3.0-0.5 Mg/3 Ml Neb Soln Administered 01/25/21 22:42 Not Given Dose 3 ml .ROUTE .STK-MED ONE Heparin Sodium (Porcine) 5,000 units 01/26/21 03:20 01/26/21 03:31 Heparin Sodium 5,000 Units/Ml Vial IVPUSH 01/26/21 03:21 5,000 units .BOLUS ONE Administration Sodium Chloride 500 mls @ 999 mls/hr 01/25/21 23:57 01/26/21 00:23 Normal Saline IV 01/26/21 00:27 999 mls/hr .BOLUS ONE Administration Sodium Chloride Confirm 01/26/21 00:19 Normal Saline Administered 01/26/21 00:20 Dose 1,000 mls @ as directed [facility] - Re-Assessments/Exams Free Text/Narrative Re-Assessment/Exam: 01/26/21 02:28 Has multiple bilateral pulmonary embolism mild RV strain with the with an RV LV ratio of 1.2. Given the patient's age she should at least be observed to make sure she does okay on anticoagulation and her course does not decompensate Case discussed with Dr. Barrett who will assume care and place the patient on observation with telemetry. We will start heparin Departure - Departure Time of Disposition: 02:23 Disposition: Refer to Observation Clinical Impression: Multiple subsegmental pulmonary emboli without acute cor pulmonale - Discharge Information Sepsis Event Note (ED) - Evaluation Sepsis Screening Result: Possible Sepsis Risk - Focused Exam Vital Signs: Vital Signs Temp Pulse Resp BP Pulse Ox Pulse Ox 01/25/21 22:45 94 L 01/25/21 21:47 37.9 C 117 H 28 H 156/52 H 88 L - My Orders Last 24 Hours: My Active Orders 01/25/21 22:25 Chest 1V Frontal [CR] Stat 01/25/21 22:28 RT Aerosol Therapy [RC] ASDIRECTED 01/25/21 23:54 Ang Chest [CT] Stat - Assessment/Plan Last 24 Hours: My Active Orders 01/25/21 22:25 Chest 1V Frontal [CR] Stat 01/25/21 22:28 RT Aerosol Therapy [RC] ASDIRECTED 01/25/21 23:54 Ang Chest [CT] Stat
[2021-01-25] MEDS ORDERED: Albuterol/Ipratropium 3.0-0.5 MG/3 ML Neb Soln NEB ONE (22:27)
[2021-01-25 22:32] LABS: CORONAVIRUS COVID-19 NAA NEGATIVE (NEGATIVE)
[2021-01-25] MEDS ORDERED: Albuterol/Ipratropium 3.0-0.5 MG/3 ML Neb Soln ONE (22:41)
[2021-01-25] MEDS ORDERED: Sodium Chloride 0.9% 500 ML IV ONE (23:57)
[2021-01-26] MEDS ORDERED: Sodium Chloride 0.9% 1,000 ML ONE (00:19)
[2021-01-26] MEDS ORDERED: Promethazine 6.25 MG in Sodium Chloride 0.9% 50 ML IV PRN (03:00)
[2021-01-26] MEDS ORDERED: Albuterol/Ipratropium 3.0-0.5 MG/3 ML Neb Soln NEB PRN (03:00)
[2021-01-26] MEDS ORDERED: Morphine 2 MG/ML SYRINGE IVPUSH PRN (03:00)
[2021-01-26] MEDS ORDERED: Acetaminophen 325 MG Tab PO PRN (03:00)
[2021-01-26] MEDS ORDERED: Acetaminophen/HYDROcodone 325-5 MG Tab PO PRN (03:09)
[2021-01-26] MEDS ORDERED: hydrALAZINE 20 MG/ML SDV IVPUSH PRN (03:10)
[2021-01-26] MEDS ORDERED: Heparin Sodium 5,000 Units/ML Vial IVPUSH ONE (03:20)
--- NOTE | 2021-01-26 03:23 | PCM.HP.2 ---
H&P History of Present Illness - General Date of Service: 01/26/21 Admit Problem/Dx: Admission Diagnosis/Problem Admission Diagnosis/Problem Pulmonary embolism Source of Information: Patient, Provider, Other - History of Present Illness Initial Comments - Free Text/Narative: Pt is an 80 yo female with a significant medical history of HTN and asthma who presented to the ER due to sob for a few days associated with mild cough. She had a covid 19 test yesterday which was negative. She denies chest pain or fever/chills. In the ER, she was found to have oxygen desaturation 88%. D-dimer came back positive, 7.48. A CTA chest was performed, showing multiple bilateral pulmonary embolism with mild right heart strain. Troponin < 0.017. creatinine 0.6. Heparin drip will be started in the ER. - Related Data Allergies/Adverse Reactions: Allergies Allergy/AdvReac Type Severity Reaction Status Date / Time Penicillins Allergy Cannot Verified 01/25/21 21:58 Remember atorvastatin AdvReac Muscle Verified 01/25/21 21:58 Aches Home Medications: Home Meds Fluticasone/Salmeterol [Advair 100-50] 1 puff INH BID 07/09/13 [History] Omeprazole 20 mg PO DAILY 07/09/13 [History] Multivitamin [Poly-Vitamin] 1 each PO DAILY 11/29/15 [History] Cholecalciferol (Vitamin D3) [Vitamin D] 1 tab PO DAILY 12/30/16 [History] [place] 3,6,9 Combination No.7 [[place] Dha] 92 mg PO DAILY 02/20/17 [History] Ubidecarenone [Coq-10] 100 mg PO DAILY 02/20/17 [History] Acetaminophen/HYDROcodone [[place] 325-5 MG] 1 tab PO Q6H PRN #6 tablet 03/02/19 [Rx] Past Medical History HEENT History: Reports: Impaired Vision, Other (See Below) Other HEENT History: wears glasses Cardiovascular History: Reports: High Cholesterol Respiratory History: Reports: Asthma Gastrointestinal History: Reports: GERD Other Gastrointestinal History: hiatial hernia Genitourinary History: Reports: Urinary Incontinence AUDIOVISUAL TECH History: Reports: - Past Surgical History HEENT Surgical History: Reports: Cataract Surgery Other HEENT Surgeries/Procedures: 1958 GI Surgical History: Reports: Appendectomy, Colonoscopy, Hernia Repair/Other Female Surgical History: Reports: Hysterectomy, Oophorectomy, Other (See Below) Other Female Surgeries/Procedures: bladder surgery Social & Family History - Family History Family Medical History: No Pertinent Family History (denies genetic disease in family) - Tobacco Use Tobacco Use Status *Q: Never Tobacco User - Caffeine Use Caffeine Use: Reports: Coffee H&P Review of Systems - Review of Systems: Review Of Systems: See Below General: Reports: No Symptoms HEENT: Reports: No Symptoms Pulmonary: Reports: Shortness of Breath, Wheezing, Cough Cardiovascular: Reports: No Symptoms Gastrointestinal: Reports: No Symptoms Genitourinary: Reports: No Symptoms Musculoskeletal: Reports: No Symptoms Skin: Reports: No Symptoms Psychiatric: Reports: No Symptoms Neurological: Reports: No Symptoms Hematologic/Lymphatic: Reports: No Symptoms Immunologic: Reports: No Symptoms Exam - Exam Exam: See Below - Vital Signs Vital Signs: Last Vital Signs Temp 37.9 C 01/25/21 21:47 Pulse 117 H 01/25/21 21:47 Resp 28 H 01/25/21 21:47 BP 156/52 H 01/25/21 21:47 Pulse Ox 94 L 01/25/21 22:45 - Exam General: Alert, Oriented, Cooperative HEENT: Conjunctiva Clear, EACs Clear, EOMI Neck: Supple, +2 Carotid Pulse wo Bruit, Full Range of Motion Lungs: Clear to Auscultation, Normal Respiratory Effort Cardiovascular: Regular Rhythm, Normal S1, Normal S2, Tachycardia GI/Abdominal Exam: Normal Bowel Sounds, Soft, Non-Tender, No Organomegaly, No Distention Extremities: Normal Inspection, Normal Range of Motion, Non-Tender, No Pedal Edema Skin: Warm, Dry, Intact Neurological: Cranial Nerves Intact, Reflexes Equal Bilateral, Strength Equal Bilateral, Normal Speech, Normal Tone, Sensation Intact Neuro Extensive - Mental Status: Alert, Oriented x3, Normal Mood/Affect Neuro Extensive - Motor, Sensory, Reflexes: CN II-XII Intact Psychiatric: Alert, Normal Affect, Normal Mood - Patient Data Lab Results Last 24 hrs: Laboratory Results - last 24 hr 01/25/21 01/25/21 01/25/21 Range/Units 21:49 22:40 22:40 WBC 10.41 H (3.98-10.04) K/mm3 RBC 4.17 (3.98-5.22) M/mm3 Hgb 12.8 (11.2-15.7) gm/dl Hct 38.6 (34.1-44.9) % MCV 92.6 (79.4-94.8) fl MCH 30.7 (25.6-32.2) pg MCHC 33.2 (32.2-35.5) g/dl RDW Std Deviation 40.8 (36.4-46.3) fL Plt Count 297 (182-369) K/mm3 MPV 9.4 (9.4-12.3) fl Neut % (Auto) 74.4 H (34.0-71.1) % Lymph % (Auto) 13.2 L (19.3-51.7) % [place] % (Auto) 11.4 (4.7-12.5) % Eos % (Auto) 0.4 L (0.7-5.8) Baso % (Auto) 0.3 (0.1-1.2) % Neut # (Auto) 7.75 H (1.56-6.13) K/mm3 Lymph # (Auto) 1.37 (1.18-3.74) K/mm3 [place] # (Auto) 1.19 H (0.24-0.36) K/mm3 Eos # (Auto) 0.04 (0.04-0.36) K/mm3 Baso # (Auto) 0.03 (0.01-0.08) K/mm3 D-Dimer, Quantitative (0.19-0.50) mg/L Sodium (136-145) mEq/L Potassium (3.5-5.1) mEq/L Chloride (98-107) mEq/L Carbon Dioxide (21-32) mEq/L Anion Gap (5-15) BUN (7-18) mg/dL Creatinine (0.55-1.02) mg/dL Est Cr Clr Drug Dosing Estimated GFR (MDRD) (>60) mL/min BUN/Creatinine Ratio (14-18) Glucose (70-99) mg/dL Calcium (8.5-10.1) mg/dL Total Bilirubin (0.2-1.0) mg/dL AST (15-37) U/L ALT (14-59) U/L Alkaline Phosphatase (46-116) U/L C-Reactive Protein 4.8 H* (<1.0) mg/dL Total Protein (6.4-8.2) g/dl Albumin (3.4-5.0) g/dl Globulin gm/dL Albumin/Globulin Ratio (1-2) Influenza Type A RNA Negative (NEGATIVE) Influenza Type B RNA Negative (NEGATIVE) Mycoplasma pneumon IgM (NEGATIVE) SARS-CoV-2 RNA (GILLIAN) Negative (NEGATIVE) 01/25/21 01/25/21 Range/Units 23:00 23:00 WBC (3.98-10.04) K/mm3 RBC (3.98-5.22) M/mm3 Hgb (11.2-15.7) gm/dl Hct (34.1-44.9) % MCV (79.4-94.8) fl MCH (25.6-32.2) pg MCHC (32.2-35.5) g/dl RDW Std Deviation (36.4-46.3) fL Plt Count (182-369) K/mm3 MPV (9.4-12.3) fl Neut % (Auto) (34.0-71.1) % Lymph % (Auto) (19.3-51.7) % [place] % (Auto) (4.7-12.5) % Eos % (Auto) (0.7-5.8) Baso % (Auto) (0.1-1.2) % Neut # (Auto) (1.56-6.13) K/mm3 Lymph # (Auto) (1.18-3.74) K/mm3 [place] # (Auto) (0.24-0.36) K/mm3 Eos # (Auto) (0.04-0.36) K/mm3 Baso # (Auto) (0.01-0.08) K/mm3 D-Dimer, Quantitative 7.48 H (0.19-0.50) mg/L Sodium 138 (136-145) mEq/L Potassium 3.3 L (3.5-5.1) mEq/L Chloride 102 (98-107) mEq/L Carbon Dioxide 28 (21-32) mEq/L Anion Gap 11.3 (5-15) BUN 11 (7-18) mg/dL Creatinine 0.6 (0.55-1.02) mg/dL Est Cr Clr Drug Dosing TNP Estimated GFR (MDRD) > 60 (>60) mL/min BUN/Creatinine Ratio 18.3 H (14-18) Glucose 113 H (70-99) mg/dL Calcium 8.5 (8.5-10.1) mg/dL Total Bilirubin 0.5 (0.2-1.0) mg/dL AST 18 (15-37) U/L ALT 18 (14-59) U/L Alkaline Phosphatase 56 (46-116) U/L C-Reactive Protein (<1.0) mg/dL Total Protein 6.6 (6.4-8.2) g/dl Albumin 2.9 L (3.4-5.0) g/dl Globulin 3.7 gm/dL Albumin/Globulin Ratio 0.8 L (1-2) Influenza Type A RNA (NEGATIVE) Influenza Type B RNA (NEGATIVE) Mycoplasma pneumon IgM Negative (NEGATIVE) SARS-CoV-2 RNA (GILLIAN) (NEGATIVE) Result Diagrams: 01/25/21 22:40 01/25/21 23:00 Sepsis Event Note - Evaluation Sepsis Screening Result: Possible Sepsis Risk - Focused Exam Vital Signs: Vital Signs Temp Pulse Resp BP Pulse Ox Pulse Ox 01/25/21 22:45 94 L 01/25/21 21:47 37.9 C 117 H 28 H 156/52 H 88 L Problem List Initiated/Reviewed/Updated: Yes Orders Last 24hrs: Active Orders 24 hr Category Date Time Status Patient Status [ADT] Routine ADT 01/26/21 03:01 Active Bedrest Bedside Commode [RC] ASDIRECTED Care 01/26/21 03:00 Active Cardiac Monitoring [RC] CONTINUOUS Care 01/26/21 03:03 Active Intake and Output [RC] QSHIFT Care 01/26/21 03:03 Active Oxygen Therapy [RC] PRN Care 01/26/21 03:01 Active Pulse Oximetry [RC] CONTINUOUS Care 01/26/21 03:03 Active RT Aerosol Therapy [RC] ASDIRECTED Care 01/25/21 22:28 Active RT Aerosol Therapy [RC] ASDIRECTED Care 01/26/21 03:07 Active VTE/DVT Education [RC] PER UNIT ROUTINE Care 01/26/21 03:01 Active Vital Signs [RC] Q4H Care 01/26/21 03:01 Active OT Evaluation and Treatment [CONS] Routine Cons 01/26/21 03:00 Active PT Evaluation and Treatment [CONS] Routine Cons 01/26/21 03:00 Active Regular Diet [DIET] Diet 01/26/21 Breakfast Active Ang Chest [CT] Stat Exams 01/25/21 23:54 Taken Chest 1V Frontal [CR] Stat Exams 01/25/21 22:25 Taken Echo 2D wo Cont [US] Urgent Exams 01/26/21 03:10 Ordered CBC WITH AUTO DIFF [HEME] DAILY Lab 01/27/21 05:00 Ordered CBC WITH AUTO DIFF [HEME] DAILY Lab 01/28/21 05:00 Ordered CBC WITH AUTO DIFF [HEME] DAILY Lab 01/29/21 05:00 Ordered CBC WITH AUTO DIFF [HEME] DAILY Lab 01/30/21 05:00 Ordered CBC WITH AUTO DIFF [HEME] DAILY Lab 01/31/21 05:00 Ordered COMPREHENSIVE METABOLIC PN,CMP [CHEM] DAILY Lab 01/27/21 05:00 Ordered COMPREHENSIVE METABOLIC PN,CMP [CHEM] DAILY Lab 01/28/21 05:00 Ordered COMPREHENSIVE METABOLIC PN,CMP [CHEM] DAILY Lab 01/29/21 05:00 Ordered COMPREHENSIVE METABOLIC PN,CMP [CHEM] DAILY Lab 01/30/21 05:00 Ordered COMPREHENSIVE METABOLIC PN,CMP [CHEM] DAILY Lab 01/31/21 05:00 Ordered INR,PT,PROTHROMBIN TIME [COAG] Stat Lab 01/26/21 02:30 Ordered MAGNESIUM [CHEM] Routine Lab 01/27/21 05:00 Ordered PTT,PARTIAL THROMBOPLSTIN TIME [COAG] Stat Lab 01/26/21 02:30 Ordered TROPONIN I [CHEM] DAILY Lab 01/27/21 05:00 Ordered TROPONIN I [CHEM] Stat Lab 01/26/21 02:30 Received Acetaminophen [TylenoL] Med 01/26/21 03:00 Active 650 mg PO Q6H PRN Acetaminophen/HYDROcodone [[place] 325-5 MG] Med 01/26/21 03:09 Active 1 tab PO Q6H PRN Albuterol/Ipratropium [DuoNeb 3.0-0.5 MG/3 ML] Med 01/26/21 03:00 Active 3 ml NEB Q4H PRN Cholecalciferol (Vitamin D3) Med 01/26/21 09:00 Ordered 1 tab PO DAILY Fluticasone/Salmeterol Med 01/26/21 03:15 Ordered 1 puff INH BID Morphine Med 01/26/21 03:00 Active 2 mg IVPUSH Q4H PRN Omeprazole Med 01/26/21 09:00 Ordered 20 mg PO DAILY Promethazine [Phenergan] 6.25 mg Med 01/26/21 03:00 Active Sodium Chloride 0.9% [Normal Saline] 50 ml IV Q6H hydrALAZINE [Apresoline] Med 01/26/21 03:10 Active 10 mg IVPUSH Q4H PRN Resuscitation Status Routine Resus Stat 01/26/21 03:00 Ordered Medication Orders Acetaminophen (Acetaminophen 325 Mg Tab) 650 mg PO Q6H PRN PRN Reason: Pain (Mild 1-3)/fever Hydrocodone Bitart/Acetaminophen (Acetaminophen/Hydrocodone 325-5 Mg Tab) 1 tab PO Q6H PRN PRN Reason: Pain (severe 7-10) Albuterol/Ipratropium (Albuterol/Ipratropium 3.0-0.5 Mg/3 Ml Neb Soln) 3 ml NEB Q4H PRN PRN Reason: Shortness Of Breath/wheezing Hydralazine HCl (Hydralazine 20 Mg/Ml Sdv) 10 mg IVPUSH Q4H PRN PRN Reason: Hypertension Promethazine HCl 6.25 mg/ (Sodium Chloride) 50.25 mls @ 100 mls/hr IV Q6H PRN PRN Reason: Nausea/Vomiting Morphine Sulfate (Morphine 2 Mg/Ml Syringe) 2 mg IVPUSH Q4H PRN PRN Reason: Pain (severe 7-10) Stop: 01/27/21 03:06 Non-Formulary Medication (Cholecalciferol (Vitamin D3)) 1 tab PO DAILY DIAMOND Non-Formulary Medication (Fluticasone/Salmeterol) 1 puff INH BID DIAMOND Non-Formulary Medication (Omeprazole) 20 mg PO DAILY DIAMOND Assessment/Plan Comment:: Pt is an 80 yo female with a significant medical history of HTN and asthma who presented to the ER due to sob for a few days associated with mild cough. Assessment and plan: Acute hypoxic respiratory failure SpO2 88% in the ER Influenza A and B negative Mycoplasma negative Covid 19 negative pulse ox oxygen therapy to keep SpO2 > 94% Acute pulmonary embolism with mild RV strain, RV LV ratio of 1.2 D-dimer 7.48 CTA chest - multiple bilateral pulmonary embolism Troponin < 0.017, repeat troponin Echo Heparin drip will be started in the ER Hx of asthma Continue home inhalers HTN will continue home meds when med rec completes hydralazine prn Hypokalemia K was ordered Repeat K DVT prophylaxis: heparin drip Prognosis: good Disposition: PT OT - Mortality Measure Prognosis:: Good
[2021-01-26] MEDS ORDERED: Heparin Sodium/D5W 25,000 UNITS/500 ML BAG IV SCH ×2 (03:30→11:00)
--- NOTE | 2021-01-26 06:08 | CR ---
Chest: Portable view of the chest was obtained. Comparison: Prior chest x-ray 04/28/20. Soft tissue density is seen to the right side of the heart compatible with large diaphragmatic hernia. Heart size is normal. Upper mediastinum is within normal limits. Lungs are clear with no acute parenchymal change. Slight scoliosis is noted within the spine. Mild degenerative change is partially seen within the spine. Impression: 1. 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 2. Other incidental findings. Nothing acute is seen. Diagnostic code #2
--- NOTE | 2021-01-26 06:19 | CT ---
CT chest Technique: Multiple axial sections were obtained through the chest. Intravenous contrast was utilized. Study has been performed as a pulmonary angiogram protocol. Comparison: Chest x-ray performed earlier on the same day (11:00 PM) and prior CT chest dated 10/18/15. Findings: Filling defects are seen within the distal left main pulmonary artery extending into the segmental branches of the lingula and left lower lung. Additional filling defects are seen within the segmental branches of the right lower lung. Additional filling defects are seen within the segmental branch of the right middle lobe. These findings are compatible with pulmonary embolism. Thoracic aorta shows atherosclerotic change with no aneurysm. Mediastinum shows no adenopathy. No axillary adenopathy is seen. Large diaphragmatic hernia is seen which extends to the right of midline. Small left-sided pleural effusion is noted. No acute abdominal abnormality is otherwise seen. Very slight chronic change appears to be present within both lung bases. No definite acute parenchymal change is seen. Bone window settings were reviewed which show diffuse disc space narrowing and spurring within the spine. There is a fairly severe compression deformity within the upper lumbar spine which is likely old. Impression: 1. Findings of pulmonary embolism within the distal left main pulmonary artery extending into the subsegmental branches within the lingula, both lower lungs as well as right middle lobe. Minimal right ventricular strain is seen. 2. Small left-sided pleural effusion. 3. Other chronic findings as described above. Diagnostic code #5 I agree with preliminary report from [facility], finalized on 01/26/21, 2:19 AM [employer], code 1
[2021-01-26] MEDS ORDERED: Pantoprazole 40 MG Tab.CR PO SCH (07:00)
[2021-01-26] MEDS: Cholecalciferol (Vitamin D3) 5,000 UNIT Cap PO SCH (08:46)
[2021-01-26] MEDS ORDERED: Formoterol/Mometasone 100-5 MCG 8.8 GM Inhaler IH SCH (09:00)
[2021-01-26] MEDS: ADVAIR INH SCH ×2 (09:43→20:49)
[2021-01-26] MEDS: Omeprazole 20 MG Cap.CR PO SCH ×2 (10:04→20:59)
--- NOTE | 2021-01-26 10:48 | PCM.SN.2 ---
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 Patient was started on a heparin drip. We will continue to monitor APTT's and adjust accordingly. She is not requiring oxygen. Today she was noting some chest pain but states she does have a history of heartburn. Troponin was negative and she was given Tums. Echocardiogram was obtained showing "1. Left ventricular ejection fraction, by visual estimation, is 60 to 65%. Normal right ventricular systolic function. 3. Right ventricular size is normal. 4. No aortic valve stenosis. 5. Mild mitral valve regurgitation. 6. Mild tricuspid valve regurgitation. 7. The right ventricular systolic pressure is mild to moderately elevated at 46.6 mmHg. 8. No regional wall motion abnormalities." We will recheck labs in the morning. Plan will be to have patient on 48 hours of heparin and then switch her to Eliquis 10 mg twice daily for 7 days. After that she will transition to 5 mg twice daily. She remains on telemetry with no telemetry calls. She was upgraded to inpatient as case management reports patient does qualify for inpatient. PT and OT did evaluate the patient and report that she is clear for home independent. Physical exam shows no signs of any distress. Lung sounds are clear in all quadrants. Cardiac exam shows normal rate and rhythm with no murmurs. Abdominal exam reveals some mild epigastric pain, which patient states is normal for her with heartburn. Normal bowel sounds. No pedal edema noted. No bruising. No changes from admission exam. She is currently on room air with saturations in the upper 90s. We will continue heparin drip as ordered. We wi ll recheck labs in the morning.
[2021-01-26] MEDS ORDERED: Calcium Carbonate 500 MG Tab.Chew PO ONE (11:35)
[2021-01-26] MEDS ORDERED: Calcium Carbonate 500 MG Tab.Chew PO PRN (14:00)
[2021-01-27] MEDS: ADVAIR INH SCH ×2 (08:13→20:30)
[2021-01-27] MEDS: Cholecalciferol (Vitamin D3) 5,000 UNIT Cap PO SCH (08:21)
[2021-01-27] MEDS: Thiamine 100 MG Tab PO SCH (08:21)
[2021-01-27] MEDS: Omeprazole 20 MG Cap.CR PO SCH ×2 (08:28→21:10)
--- NOTE | 2021-01-27 11:13 | PCM.PN ---
- General Info Date of Service: 01/27/21 Admission Dx/Problem (Free Text): Admission Diagnosis/Problem Admission Diagnosis/Problem Pulmonary embolism Functional Status: Reports: Pain Controlled, Tolerating Diet, Ambulating, Urinating. Denies: New Symptoms - Review of Systems General: Reports: No Symptoms. Denies: Fever, Weakness, Fatigue, Malaise, Chills HEENT: Reports: No Symptoms. Denies: Headaches, Sore Throat Pulmonary: Reports: Shortness of Breath (improving ), Cough. Denies: Pleuritic Chest Pain, Sputum, Wheezing Cardiovascular: Reports: Dyspnea on Exertion (Improving ). Denies: Chest Pain, Palpitations, Edema, Lightheadedness Gastrointestinal: Reports: No Symptoms. Denies: Abdominal Pain, Constipation, Diarrhea, Nausea, Vomiting Genitourinary: Reports: No Symptoms. Denies: Pain Musculoskeletal: Reports: No Symptoms Skin: Reports: No Symptoms. Denies: Cyanosis Neurological: Reports: No Symptoms. Denies: Confusion, Dizziness, Headache, Numbness, Pre-Existing Deficit, Syncope, Tingling, Difficulty Walking, Weakness, Gait Disturbance Psychiatric: Reports: No Symptoms - Patient Data Vitals - Most Recent: Last Vital Signs Temp 98.4 F 01/27/21 07:41 Pulse 77 01/27/21 07:41 Resp 23 H 01/27/21 07:41 BP 145/81 H 01/27/21 07:41 Pulse Ox 93 L 01/27/21 08:13 Weight - Most Recent: 130 lb 8 oz I&O - Last 24 Hours: Intake & Output 01/26/21 01/27/21 01/27/21 22:59 06:59 14:59 Intake Total 1042 430 Output Total 550 250 Balance 492 180 Lab Results Last 24 Hours: Laboratory Results - last 24 hr 01/26/21 01/26/21 01/26/21 Range/Units 11:05 11:05 16:44 WBC (3.98-10.04) K/mm3 RBC (3.98-5.22) M/mm3 Hgb (11.2-15.7) gm/dl Hct (34.1-44.9) % MCV (79.4-94.8) fl MCH (25.6-32.2) pg MCHC (32.2-35.5) g/dl RDW Std Deviation (36.4-46.3) fL Plt Count (182-369) K/mm3 MPV (9.4-12.3) fl Neut % (Auto) (34.0-71.1) % Lymph % (Auto) (19.3-51.7) % Imperial % (Auto) (4.7-12.5) % Eos % (Auto) (0.7-5.8) Baso % (Auto) (0.1-1.2) % Neut # (Auto) (1.56-6.13) K/mm3 Lymph # (Auto) (1.18-3.74) K/mm3 [place] # (Auto) (0.24-0.36) K/mm3 Eos # (Auto) (0.04-0.36) K/mm3 Baso # (Auto) (0.01-0.08) K/mm3 APTT 52.8 H D 57.6 H (21.7-31.4) SECONDS Sodium (136-145) mEq/L Potassium (3.5-5.1) mEq/L Chloride (98-107) mEq/L Carbon Dioxide (21-32) mEq/L Anion Gap (5-15) BUN (7-18) mg/dL Creatinine (0.55-1.02) mg/dL Est Cr Clr Drug Dosing mL/min Estimated GFR (MDRD) (>60) mL/min BUN/Creatinine Ratio (14-18) Glucose (70-99) mg/dL Calcium (8.5-10.1) mg/dL Magnesium (1.8-2.4) mg/dL Total Bilirubin (0.2-1.0) mg/dL AST (15-37) U/L ALT (14-59) U/L Alkaline Phosphatase (46-116) U/L Troponin I < 0.017 (0.00-0.056) ng/mL Total Protein (6.4-8.2) g/dl Albumin (3.4-5.0) g/dl Globulin gm/dL Albumin/Globulin Ratio (1-2) 01/27/21 01/27/21 01/27/21 Range/Units 05:09 05:09 05:09 WBC 6.96 (3.98-10.04) K/mm3 RBC 3.97 L (3.98-5.22) M/mm3 Hgb 12.0 (11.2-15.7) gm/dl Hct 36.7 (34.1-44.9) % MCV 92.4 (79.4-94.8) fl MCH 30.2 (25.6-32.2) pg MCHC 32.7 (32.2-35.5) g/dl RDW Std Deviation 40.9 (36.4-46.3) fL Plt Count 302 (182-369) K/mm3 MPV 9.4 (9.4-12.3) fl Neut % (Auto) 59.9 (34.0-71.1) % Lymph % (Auto) 26.7 (19.3-51.7) % [place] % (Auto) 11.1 (4.7-12.5) % Eos % (Auto) 1.3 (0.7-5.8) Baso % (Auto) 0.7 (0.1-1.2) % Neut # (Auto) 4.17 (1.56-6.13) K/mm3 Lymph # (Auto) 1.86 (1.18-3.74) K/mm3 [place] # (Auto) 0.77 H (0.24-0.36) K/mm3 Eos # (Auto) 0.09 (0.04-0.36) K/mm3 Baso # (Auto) 0.05 (0.01-0.08) K/mm3 APTT 79.8 H D (21.7-31.4) SECONDS Sodium 142 (136-145) mEq/L Potassium 3.7 (3.5-5.1) mEq/L Chloride 103 (98-107) mEq/L Carbon Dioxide 30 (21-32) mEq/L Anion Gap 12.7 (5-15) BUN 8 (7-18) mg/dL Creatinine 0.6 (0.55-1.02) mg/dL Est Cr Clr Drug Dosing 53.71 mL/min Estimated GFR (MDRD) > 60 (>60) mL/min BUN/Creatinine Ratio 13.3 L (14-18) Glucose 98 (70-99) mg/dL Calcium 8.2 L (8.5-10.1) mg/dL Magnesium 1.8 (1.8-2.4) mg/dL Total Bilirubin 0.4 (0.2-1.0) mg/dL AST 17 (15-37) U/L ALT 15 (14-59) U/L Alkaline Phosphatase 53 (46-116) U/L Troponin I (0.00-0.056) ng/mL Total Protein 5.7 L (6.4-8.2) g/dl Albumin 2.7 L (3.4-5.0) g/dl Globulin 3.0 gm/dL Albumin/Globulin Ratio 0.9 L (1-2) Med Orders - Current: Current Medications Acetaminophen (Acetaminophen 325 Mg Tab) 650 mg PO Q6H PRN PRN Reason: Pain (Mild 1-3)/fever Hydrocodone Bitart/Acetaminophen (Acetaminophen/Hydrocodone 325-5 Mg Tab) 1 tab PO Q6H PRN PRN Reason: Pain (severe 7-10) Albuterol/Ipratropium (Albuterol/Ipratropium 3.0-0.5 Mg/3 Ml Neb Soln) 3 ml NEB Q4H PRN PRN Reason: Shortness Of Breath/wheezing Last Admin: 01/26/21 20:49 Dose: 3 ml Documented by: Apixaban (Apixaban 5 Mg Tab) 10 mg PO BID DIAMOND Stop: 02/03/21 21:01 Calcium Carbonate/Glycine (Calcium Carbonate 500 Mg Tab.Chew) 1,000 mg PO Q2H PRN PRN Reason: Indigestion Cholecalciferol (Cholecalciferol (Vitamin D3) 5,000 Unit Cap) 5,000 unit PO DAILY DIAMOND Last Admin: 01/27/21 08:21 Dose: 5,000 unit Documented by: Hydralazine HCl (Hydralazine 20 Mg/Ml Sdv) 10 mg IVPUSH Q4H PRN PRN Reason: Hypertension Promethazine HCl 6.25 mg/ (Sodium Chloride) 50.25 mls @ 100 mls/hr IV Q6H PRN PRN Reason: Nausea/Vomiting Heparin Sodium/Dextrose (Heparin 25,000 Units In D5w 500 Ml) 25,000 units in 500 mls @ 21.2 mls/hr IV TITRATE DIAMOND; Protocol Stop: 01/27/21 20:00 Last Titration: 01/27/21 07:55 Dose: 18.8 mls/hr Documented by: Advair Diskus 100/50 (- Pt's Own Med) 0 each INH BID DIAMOND Last Admin: 01/27/21 08:13 Dose: 1 each Documented by: Omeprazole (Omeprazole 20 Mg Cap.Cr) 20 mg PO BID DIAMOND Last Admin: 01/27/21 08:28 Dose: 20 mg Documented by: Thiamine HCl (Thiamine 100 Mg Tab) 100 mg PO DAILY DIAMOND Last Admin: 01/27/21 08:21 Dose: 100 mg Documented by: Discontinued Medications Albuterol/Ipratropium (Albuterol/Ipratropium 3.0-0.5 Mg/3 Ml Neb Soln) 3 ml NEB ONETIME ONE Stop: 01/25/21 22:28 Last Admin: 01/25/21 22:44 Dose: 3 ml Documented by: Albuterol/Ipratropium (Albuterol/Ipratropium 3.0-0.5 Mg/3 Ml Neb Soln) Confirm Administered Dose 3 ml .ROUTE .STK-MED ONE Stop: 01/25/21 22:42 Last Admin: 01/26/21 00:23 Dose: Not Given Documented by: Calcium Carbonate/Glycine (Calcium Carbonate 500 Mg Tab.Chew) 1,000 mg PO ONETIME ONE Stop: 01/26/21 11:36 Last Admin: 01/26/21 19:40 Dose: Not Given Documented by: Heparin Sodium (Porcine) (Heparin Sodium 5,000 Units/Ml Vial) 5,000 units IVPUSH .BOLUS ONE Stop: 01/26/21 03:21 Last Admin: 01/26/21 03:31 Dose: 5,000 units Documented by: Sodium Chloride (Normal Saline) 500 mls @ 999 mls/hr IV .BOLUS ONE Stop: 01/26/21 00:27 Last Admin: 01/26/21 00:23 Dose: 999 mls/hr Documented by: Sodium Chloride (Normal Saline) Confirm Administered Dose 1,000 mls @ as directed .ROUTE .STK-MED ONE Stop: 01/26/21 00:20 Last Admin: 01/26/21 04:26 Dose: Not Given Documented by: Heparin Sodium/Dextrose (Heparin 25,000 Units In D5w 500 Ml) 25,000 units in 500 mls @ 21.2 mls/hr IV TITRATE DIAMOND; Protocol Last Titration: 01/26/21 21:31 Dose: 21.2 mls/hr, 21.2 mls/hr Documented by: Mometasone Furoate/Formoterol Fumar (Formoterol/Mometasone 100-5 Mcg 8.8 Gm Inhaler) 2 puff IH BID [facility] Last Admin: 01/26/21 08:24 Dose: Not Given Documented by: Morphine Sulfate (Morphine 2 Mg/Ml Syringe) 2 mg IVPUSH Q4H PRN PRN Reason: Pain (severe 7-10) Stop: 01/27/21 03:06 Pantoprazole Sodium (Pantoprazole 40 Mg Tab.Cr) 40 mg PO DAILY@0700 [facility] Last Admin: 01/26/21 08:46 Dose: 40 mg Documented by: - Exam Quality Assessment: DVT Prophylaxis. No: Supplemental Oxygen, Urine Catheter General: Alert, Oriented, Cooperative, No Acute Distress HEENT: Pupils Equal, Pupils Reactive, Mucous Membr. Moist/[place] Neck: Supple, Trachea Midline Lungs: Clear to Auscultation, Normal Respiratory Effort Cardiovascular: Regular Rate, Regular Rhythm GI/Abdominal Exam: Normal Bowel Sounds, Soft, Non-Tender, No Distention (Female) Exam: Deferred Back Exam: Normal Inspection, Full Range of Motion Extremities: Normal Inspection, Normal Range of Motion, Non-Tender, No Pedal Edema, Normal Capillary Refill Skin: Warm, Dry, Intact Neurological: No New Focal Deficit Psy/Mental Status: Alert, Normal Affect, Normal Mood - Patient Data Lab Results Last 24 hrs: Laboratory Results - last 24 hr 01/26/21 01/26/21 01/26/21 Range/Units 11:05 11:05 16:44 WBC (3.98-10.04) K/mm3 RBC (3.98-5.22) M/mm3 Hgb (11.2-15.7) gm/dl Hct (34.1-44.9) % MCV (79.4-94.8) fl MCH (25.6-32.2) pg MCHC (32.2-35.5) g/dl RDW Std Deviation (36.4-46.3) fL Plt Count (182-369) K/mm3 MPV (9.4-12.3) fl Neut % (Auto) (34.0-71.1) % Lymph % (Auto) (19.3-51.7) % Imperial % (Auto) (4.7-12.5) % Eos % (Auto) (0.7-5.8) Baso % (Auto) (0.1-1.2) % Neut # (Auto) (1.56-6.13) K/mm3 Lymph # (Auto) (1.18-3.74) K/mm3 Imperial # (Auto) (0.24-0.36) K/mm3 Eos # (Auto) (0.04-0.36) K/mm3 Baso # (Auto) (0.01-0.08) K/mm3 APTT 52.8 H D 57.6 H (21.7-31.4) SECONDS Sodium (136-145) mEq/L Potassium (3.5-5.1) mEq/L Chloride (98-107) mEq/L Carbon Dioxide (21-32) mEq/L Anion Gap (5-15) BUN (7-18) mg/dL Creatinine (0.55-1.02) mg/dL Est Cr Clr Drug Dosing mL/min Estimated GFR (MDRD) (>60) mL/min BUN/Creatinine Ratio (14-18) Glucose (70-99) mg/dL Calcium (8.5-10.1) mg/dL Magnesium (1.8-2.4) mg/dL Total Bilirubin (0.2-1.0) mg/dL AST (15-37) U/L ALT (14-59) U/L Alkaline Phosphatase (46-116) U/L Troponin I < 0.017 (0.00-0.056) ng/mL Total Protein (6.4-8.2) g/dl Albumin (3.4-5.0) g/dl Globulin gm/dL Albumin/Globulin Ratio (1-2) 01/27/21 01/27/21 01/27/21 Range/Units 05:09 05:09 05:09 WBC 6.96 (3.98-10.04) K/mm3 RBC 3.97 L (3.98-5.22) M/mm3 Hgb 12.0 (11.2-15.7) gm/dl Hct 36.7 (34.1-44.9) % MCV 92.4 (79.4-94.8) fl MCH 30.2 (25.6-32.2) pg MCHC 32.7 (32.2-35.5) g/dl RDW Std Deviation 40.9 (36.4-46.3) fL Plt Count 302 (182-369) K/mm3 MPV 9.4 (9.4-12.3) fl Neut % (Auto) 59.9 (34.0-71.1) % Lymph % (Auto) 26.7 (19.3-51.7) % Imperial % (Auto) 11.1 (4.7-12.5) % Eos % (Auto) 1.3 (0.7-5.8) Baso % (Auto) 0.7 (0.1-1.2) % Neut # (Auto) 4.17 (1.56-6.13) K/mm3 Lymph # (Auto) 1.86 (1.18-3.74) K/mm3 Imperial # (Auto) 0.77 H (0.24-0.36) K/mm3 Eos # (Auto) 0.09 (0.04-0.36) K/mm3 Baso # (Auto) 0.05 (0.01-0.08) K/mm3 APTT 79.8 H D (21.7-31.4) SECONDS Sodium 142 (136-145) mEq/L Potassium 3.7 (3.5-5.1) mEq/L Chloride 103 (98-107) mEq/L Carbon Dioxide 30 (21-32) mEq/L Anion Gap 12.7 (5-15) BUN 8 (7-18) mg/dL Creatinine 0.6 (0.55-1.02) mg/dL Est Cr Clr Drug Dosing 53.71 mL/min Estimated GFR (MDRD) > 60 (>60) mL/min BUN/Creatinine Ratio 13.3 L (14-18) Glucose 98 (70-99) mg/dL Calcium 8.2 L (8.5-10.1) mg/dL Magnesium 1.8 (1.8-2.4) mg/dL Total Bilirubin 0.4 (0.2-1.0) mg/dL AST 17 (15-37) U/L ALT 15 (14-59) U/L Alkaline Phosphatase 53 (46-116) U/L Troponin I (0.00-0.056) ng/mL Total Protein 5.7 L (6.4-8.2) g/dl Albumin 2.7 L (3.4-5.0) g/dl Globulin 3.0 gm/dL Albumin/Globulin Ratio 0.9 L (1-2) Result Diagrams: 01/27/21 05:09 01/27/21 05:09 Sepsis Event Note - Evaluation Sepsis Screening Result: No Definite Risk - Focused Exam Vital Signs: Vital Signs Temp Pulse Resp BP Pulse Ox Pulse Ox 01/27/21 08:13 93 L 01/27/21 07:41 98.4 F 77 23 H 145/81 H 94 L 01/27/21 04:29 97.7 F 79 20 124/65 94 L 01/26/21 23:40 98.6 F 83 24 H 96/53 L 96 - Problem List & Annotations (1) Pulmonary embolism SNOMED Code(s): 66971968 Code(s): I26.99 - OTHER PULMONARY EMBOLISM WITHOUT ACUTE COR PULMONALE Status: Acute Priority: High Current Visit: Yes Qualifiers: Pulmonary embolism type: unspecified Chronicity: acute Acute cor pulmonale presence: with acute cor pulmonale Qualified Code(s): I26.09 - Other pulmonary embolism with acute cor pulmonale (2) GERD (gastroesophageal reflux disease) SNOMED Code(s): 003450465 Code(s): K21.9 - GASTRO-ESOPHAGEAL REFLUX DISEASE WITHOUT ESOPHAGITIS Status: Acute Priority: Medium Current Visit: Yes Qualifiers: Esophagitis presence: esophagitis presence not specified Qualified Code(s): K21.9 - Gastro-esophageal reflux disease without esophagitis (3) Acute respiratory failure with hypoxia SNOMED Code(s): 26310196, 902973804 Code(s): J96.01 - ACUTE RESPIRATORY FAILURE WITH HYPOXIA Status: Resolved Priority: High Current Visit: Yes (4) Asthma SNOMED Code(s): 105490828 Code(s): J45.909 - UNSPECIFIED ASTHMA, UNCOMPLICATED Status: Chronic Priority: Medium Current Visit: Yes Qualifiers: Asthma severity: unspecified severity Asthma persistence: unspecified Asthma complication type: unspecified Qualified Code(s): J45.909 - Unspecified asthma, uncomplicated (5) Hypokalemia SNOMED Code(s): 46553586 Code(s): E87.6 - HYPOKALEMIA Status: Resolved Priority: High Current Visit: Yes (6) Elevated d-dimer SNOMED Code(s): 249716522 Code(s): R79.89 - OTHER SPECIFIED ABNORMAL FINDINGS OF BLOOD CHEMISTRY Status: Acute Priority: High Current Visit: Yes - Problem List Review Problem List Initiated/Reviewed/Updated: Yes - My Orders Last 24 Hours: My Active Orders 01/26/21 10:53 Consult to Case Management/Senior Recruitment Consultant [CONS] Routine 01/26/21 11:00 Heparin Sodium/D5W [Heparin 25,000 Units in D5W 500 ML] 25,000 units in 500 ml IV TITRATE 01/26/21 14:00 Calcium Carbonate [Tums] 1,000 mg PO Q2H PRN 01/26/21 14:49 Up With Assistance [RC] ASDIRECTED 01/27/21 09:00 Thiamine [Vitamin B-1] 100 mg PO DAILY 01/27/21 21:00 Apixaban [Eliquis] 10 mg PO BID - Assessment Assessment:: 01/26/2021 This is a 80-year-old female 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 Patient was started on a heparin drip. We will continue to monitor APTT's and adjust accordingly. She is not requiring oxygen. Today she was noting some chest pain but states she does have a history of heartburn. Troponin was negative and she was given Tums. Echocardiogram was obtained showing "1. Left ventricular ejection fraction, by visual estimation, is 60 to 65%. Normal right ventricular systolic function. 3. Right ventricular size is normal. 4. No aortic valve stenosis. 5. Mild mi tral valve regurgitation. 6. Mild tricuspid valve regurgitation. 7. The right ventricular systolic pressure is mild to moderately elevated at 46.6 mmHg. 8. No regional wall motion abnormalities." We will recheck labs in the morning. Plan will be to have patient on 48 hours of heparin and then switch her to Eliquis 10 mg twice daily for 7 days. After that she will transition to 5 mg twice daily. She remains on telemetry with no telemetry calls. She was upgraded to inpatient as case management reports patient does qualify for inpatient. PT and OT did evaluate the patient and report that she is clear for home independent. Physical exam shows no signs of any distress. Lung sounds are clear in all quadrants. Cardiac exam shows normal rate and rhythm with no murmurs. Abdominal exam reveals some mild epigastric pain, which patient states is normal for her with heartburn. Normal bowel sounds. No pedal edema noted. No bruising. No changes from admission exam. She is currently on room air with saturations in the upper 90s. We will continue heparin drip as ordered. We will recheck labs in the morning. 01/27/2021 8-year-old female admitted to the floor for management of pulmonary embolism with mild right heart strain. Patient was started on a heparin drip and this continues today. This was discontinued at 1999. We will start 10 mg twice otilio y Eliquis tonight at 2099. This dosing should continue for a total of 7 days with 5 mg twice daily continued thereafter. She remains off of oxygen. She reports a dry cough but states her shortness of breath has greatly improved. She denies any need for cough medication. She was reporting GERD symptoms yesterday, which she states is chronic for her. Troponin was checked and was negative and this was resolved with Tums. These remain as needed. Echocardiogram was obtained as noted above. Discussed plan with patient. She lives alone at a cottage at [employer] [facility] [employer]. Plan will be to keep her until tomorrow and discharge her in the a.m. Labs today show WBC of 6.96. Hemoglobin 12.0. Hematocrit 36.7. Platelet 302,000. Neutrophils are normal at 59.9. APTT this morning was 79.8. Sodium was 142. Potassium 3.7. Chloride 103. Carbon dioxide 30. Anion gap is 12.7. BUN is 8. Creatinine 0.6. GFR is greater than 60. Glucose is 98. Calcium 8.2. Magnesium 1.8. Total bilirubin 0.4. AST was 17, ALT 15, alkaline phosphatase was 53. Protein was 5.7. Albumin 2.7. MRSA screen obtained yesterday was negative. - Plan Plan:: Pt is an 80 yo female with a significant medical history of HTN and asthma who presented to the ER due to sob for a few days associated with mild cough. Assessment and plan: Acute hypoxic respiratory failure SpO2 88% in the ER Influenza A and B negative Mycoplasma negative Covid 19 negative pulse ox oxygen therapy to keep SpO2 > 94% Acute pulmonary embolism with mild RV strain, RV LV ratio of 1.2 D-dimer 7.48 CTA chest - multiple bilateral pulmonary embolism Troponin < 0.017 x 2 Obtained as noted Heparin drip started in ED. Will transition to Eliquis at 2100 tonight. 10mg BID for 7 days and then 5mg BID thereafter Discontinue heparin drip at 2000 today Hx of asthma Continue home inhalers PRN duonebs Hypokalemia, Resolved K was supplemented Monitor DVT prophylaxis: heparin drip transitioning to Eliquis tonight Prognosis: good Disposition: Discharge home to [facility] tomorrow
[2021-01-27] MEDS: Apixaban 5 MG Tab PO SCH (21:10)
[2021-01-28] MEDS: ADVAIR INH SCH ×2 (08:31→20:15)
[2021-01-28] MEDS: Apixaban 5 MG Tab PO SCH ×2 (08:49→20:42)
[2021-01-28] MEDS: Thiamine 100 MG Tab PO SCH (08:49)
[2021-01-28] MEDS: Cholecalciferol (Vitamin D3) 5,000 UNIT Cap PO SCH (08:49)
[2021-01-28] MEDS: Omeprazole 20 MG Cap.CR PO SCH ×2 (08:50→20:43)
--- NOTE | 2021-01-28 09:38 | PCM.PN ---
- General Info Date of Service: 01/28/21 Admission Dx/Problem (Free Text): Admission Diagnosis/Problem Admission Diagnosis/Problem Pulmonary embolism Subjective Update: Aline had left-sided chest pain approximately 1:00 this morning that woke her from her sleep. Vital signs were stable and she was not short of breath. It resolved with [place] and she is pain-free this morning. Patient is concerned about going back to her apartment because she has no help and would feel more comfortable waiting another day. She was dizzy after getting the [place] and feels not stable enough to go home. Functional Status: Reports: Pain Controlled - Review of Systems General: Reports: Weakness HEENT: Reports: No Symptoms Pulmonary: Reports: No Symptoms Cardiovascular: Reports: No Symptoms Gastrointestinal: Reports: No Symptoms Musculoskeletal: Reports: Other (Left chest pain) Neurological: Reports: Dizziness - Patient Data Vitals - Most Recent: Last Vital Signs Temp 96.6 F L 01/28/21 08:00 Pulse 78 01/28/21 08:00 Resp 16 01/28/21 08:00 BP 133/93 H 01/28/21 08:00 Pulse Ox 95 01/28/21 08:31 Weight - Most Recent: 130 lb 8 oz I&O - Last 24 Hours: Intake & Output 01/27/21 01/28/21 01/28/21 22:59 06:59 14:59 Intake Total 850 240 Output Total 300 Balance 550 240 Lab Results Last 24 Hours: Laboratory Results - last 24 hr 01/27/21 01/28/21 01/28/21 Range/Units 13:45 06:00 06:00 WBC 6.74 (3.98-10.04) K/mm3 RBC 3.90 L (3.98-5.22) M/mm3 Hgb 11.9 (11.2-15.7) gm/dl Hct 36.2 (34.1-44.9) % MCV 92.8 (79.4-94.8) fl MCH 30.5 (25.6-32.2) pg MCHC 32.9 (32.2-35.5) g/dl RDW Std Deviation 40.8 (36.4-46.3) fL Plt Count 308 (182-369) K/mm3 MPV 9.4 (9.4-12.3) fl Neut % (Auto) 58.7 (34.0-71.1) % Lymph % (Auto) 26.7 (19.3-51.7) % Alexander % (Auto) 11.6 (4.7-12.5) % Eos % (Auto) 2.1 (0.7-5.8) Baso % (Auto) 0.6 (0.1-1.2) % Neut # (Auto) 3.96 (1.56-6.13) K/mm3 Lymph # (Auto) 1.80 (1.18-3.74) K/mm3 Alexander # (Auto) 0.78 H (0.24-0.36) K/mm3 Eos # (Auto) 0.14 (0.04-0.36) K/mm3 Baso # (Auto) 0.04 (0.01-0.08) K/mm3 APTT 53.2 H D (21.7-31.4) SECONDS Sodium 140 (136-145) mEq/L Potassium 3.6 (3.5-5.1) mEq/L Chloride 103 (98-107) mEq/L Carbon Dioxide 26 (21-32) mEq/L Anion Gap 14.6 (5-15) BUN 8 (7-18) mg/dL Creatinine 0.6 (0.55-1.02) mg/dL Est Cr Clr Drug Dosing 53.71 mL/min Estimated GFR (MDRD) > 60 (>60) mL/min BUN/Creatinine Ratio 13.3 L (14-18) Glucose 94 (70-99) mg/dL Calcium 8.4 L (8.5-10.1) mg/dL Total Bilirubin 0.4 (0.2-1.0) mg/dL AST 15 (15-37) U/L ALT 16 (14-59) U/L Alkaline Phosphatase 48 (46-116) U/L Total Protein 5.7 L (6.4-8.2) g/dl Albumin 2.7 L (3.4-5.0) g/dl Globulin 3.0 gm/dL Albumin/Globulin Ratio 0.9 L (1-2) Med Orders - Current: Current Medications Acetaminophen (Acetaminophen 325 Mg Tab) 650 mg PO Q6H PRN PRN Reason: Pain (Mild 1-3)/fever Hydrocodone Bitart/Acetaminophen (Acetaminophen/Hydrocodone 325-5 Mg Tab) 1 tab PO Q6H PRN PRN Reason: Pain (severe 7-10) Last Admin: 01/28/21 01:27 Dose: 1 tab Documented by: Albuterol/Ipratropium (Albuterol/Ipratropium 3.0-0.5 Mg/3 Ml Neb Soln) 3 ml NEB Q4H PRN PRN Reason: Shortness Of Breath/wheezing Last Admin: 01/26/21 20:49 Dose: 3 ml Documented by: Apixaban (Apixaban 5 Mg Tab) 10 mg PO BID [facility] Stop: 02/03/21 09:01 Last Admin: 01/28/21 08:49 Dose: 10 mg Documented by: Calcium Carbonate/Glycine (Calcium Carbonate 500 Mg Tab.Chew) 1,000 mg PO Q2H PRN PRN Reason: Indigestion Cholecalciferol (Cholecalciferol (Vitamin D3) 5,000 Unit Cap) 5,000 unit PO DAILY [facility] Last Admin: 01/28/21 08:49 Dose: 5,000 unit Documented by: Hydralazine HCl (Hydralazine 20 Mg/Ml Sdv) 10 mg IVPUSH Q4H PRN PRN Reason: Hypertension Promethazine HCl 6.25 mg/ (Sodium Chloride) 50.25 mls @ 100 mls/hr IV Q6H PRN PRN Reason: Nausea/Vomiting Advair Diskus 100/50 (- Pt's Own Med) 0 each INH BID [facility] Last Admin: 01/28/21 08:31 Dose: 1 each Documented by: Omeprazole (Omeprazole 20 Mg Cap.Cr) 20 mg PO BID [facility] Last Admin: 01/28/21 08:50 Dose: 20 mg Documented by: Thiamine HCl (Thiamine 100 Mg Tab) 100 mg PO DAILY [facility] Last Admin: 01/28/21 08:49 Dose: 100 mg Documented by: Discontinued Medications Albuterol/Ipratropium (Albuterol/Ipratropium 3.0-0.5 Mg/3 Ml Neb Soln) 3 ml NEB ONETIME ONE Stop: 01/25/21 22:28 Last Admin: 01/25/21 22:44 Dose: 3 ml Documented by: Albuterol/Ipratropium (Albuterol/Ipratropium 3.0-0.5 Mg/3 Ml Neb Soln) Confirm Administered Dose 3 ml .ROUTE .STK-MED ONE Stop: 01/25/21 22:42 Last Admin: 01/26/21 00:23 Dose: Not Given Documented by: Calcium Carbonate/Glycine (Calcium Carbonate 500 Mg Tab.Chew) 1,000 mg PO ONETIME ONE Stop: 01/26/21 11:36 Last Admin: 01/26/21 19:40 Dose: Not Given Documented by: Heparin Sodium (Porcine) (Heparin Sodium 5,000 Units/Ml Vial) 5,000 units IVPUSH .BOLUS ONE Stop: 01/26/21 03:21 Last Admin: 01/26/21 03:31 Dose: 5,000 units Documented by: Sodium Chloride (Normal Saline) 500 mls @ 999 mls/hr IV .BOLUS ONE Stop: 01/26/21 00:27 Last Admin: 01/26/21 00:23 Dose: 999 mls/hr Documented by: Sodium Chloride (Normal Saline) Confirm Administered Dose 1,000 mls @ as directed .ROUTE .STK-MED ONE Stop: 01/26/21 00:20 Last Admin: 01/26/21 04:26 Dose: Not Given Documented by: Heparin Sodium/Dextrose (Heparin 25,000 Units In D5w 500 Ml) 25,000 units in 500 mls @ 21.2 mls/hr IV TITRATE DIAMOND; Protocol Last Titration: 01/26/21 21:31 Dose: 21.2 mls/hr, 21.2 mls/hr Documented by: Heparin Sodium/Dextrose (Heparin 25,000 Units In D5w 500 Ml) 25,000 units in 500 mls @ 21.2 mls/hr IV TITRATE DIAMOND; Protocol Stop: 01/27/21 20:00 Last Titration: 01/27/21 07:55 Dose: 18.8 mls/hr Documented by: Mometasone Furoate/Formoterol Fumar (Formoterol/Mometasone 100-5 Mcg 8.8 Gm Inhaler) 2 puff IH BID DIAMOND Last Admin: 01/26/21 08:24 Dose: Not Given Documented by: Morphine Sulfate (Morphine 2 Mg/Ml Syringe) 2 mg IVPUSH Q4H PRN PRN Reason: Pain (severe 7-10) Stop: 01/27/21 03:06 Pantoprazole Sodium (Pantoprazole 40 Mg Tab.Cr) 40 mg PO DAILY@0700 [facility] Last Admin: 01/26/21 08:46 Dose: 40 mg Documented by: - Exam Quality Assessment: No: Supplemental Oxygen General: Alert, Oriented HEENT: Pupils Equal, Mucous Membr. Moist/[place] Neck: Supple Lungs: Clear to Auscultation, Normal Respiratory Effort Cardiovascular: Regular Rate, Regular Rhythm GI/Abdominal Exam: Normal Bowel Sounds, Soft, Non-Tender, No Distention, No Abnormal Bruit Extremities: Normal Inspection, Normal Range of Motion, Non-Tender, No Pedal Edema, Normal Capillary Refill Skin: Warm, Dry, Intact Neurological: No New Focal Deficit Psy/Mental Status: Alert, Normal Affect, Normal Mood - Patient Data Lab Results Last 24 hrs: Laboratory Results - last 24 hr 01/27/21 01/28/21 01/28/21 Range/Units 13:45 06:00 06:00 WBC 6.74 (3.98-10.04) K/mm3 RBC 3.90 L (3.98-5.22) M/mm3 Hgb 11.9 (11.2-15.7) gm/dl Hct 36.2 (34.1-44.9) % MCV 92.8 (79.4-94.8) fl MCH 30.5 (25.6-32.2) pg MCHC 32.9 (32.2-35.5) g/dl RDW Std Deviation 40.8 (36.4-46.3) fL Plt Count 308 (182-369) K/mm3 MPV 9.4 (9.4-12.3) fl Neut % (Auto) 58.7 (34.0-71.1) % Lymph % (Auto) 26.7 (19.3-51.7) % Alexander % (Auto) 11.6 (4.7-12.5) % Eos % (Auto) 2.1 (0.7-5.8) Baso % (Auto) 0.6 (0.1-1.2) % Neut # (Auto) 3.96 (1.56-6.13) K/mm3 Lymph # (Auto) 1.80 (1.18-3.74) K/mm3 Alexander # (Auto) 0.78 H (0.24-0.36) K/mm3 Eos # (Auto) 0.14 (0.04-0.36) K/mm3 Baso # (Auto) 0.04 (0.01-0.08) K/mm3 APTT 53.2 H D (21.7-31.4) SECONDS Sodium 140 (136-145) mEq/L Potassium 3.6 (3.5-5.1) mEq/L Chloride 103 (98-107) mEq/L Carbon Dioxide 26 (21-32) mEq/L Anion Gap 14.6 (5-15) BUN 8 (7-18) mg/dL Creatinine 0.6 (0.55-1.02) mg/dL Est Cr Clr Drug Dosing 53.71 mL/min Estimated GFR (MDRD) > 60 (>60) mL/min BUN/Creatinine Ratio 13.3 L (14-18) Glucose 94 (70-99) mg/dL Calcium 8.4 L (8.5-10.1) mg/dL Total Bilirubin 0.4 (0.2-1.0) mg/dL AST 15 (15-37) U/L ALT 16 (14-59) U/L Alkaline Phosphatase 48 (46-116) U/L Total Protein 5.7 L (6.4-8.2) g/dl Albumin 2.7 L (3.4-5.0) g/dl Globulin 3.0 gm/dL Albumin/Globulin Ratio 0.9 L (1-2) Result Diagrams: 01/28/21 06:00 01/28/21 06:00 Sepsis Event Note - Evaluation Sepsis Screening Result: No Definite Risk - Focused Exam Vital Signs: Vital Signs Temp Pulse Resp BP Pulse Ox Pulse Ox 01/28/21 08:31 95 01/28/21 08:00 96.6 F L 78 16 133/93 H 94 L 01/28/21 03:19 98.4 F 88 16 138/70 93 L 01/28/21 03:00 93 L 01/28/21 01:09 98.2 F 96 20 140/89 96 01/28/21 00:32 98.2 F 89 16 133/67 93 L - Problem List & Annotations (1) Multiple subsegmental pulmonary emboli without acute cor pulmonale SNOMED Code(s): 26088220 Code(s): I26.94 - MULT SUBSEGMENTAL PULMON EMBOLI WITHOUT ACUTE COR PULMONALE Status: Acute Current Visit: Yes - Problem List Review Problem List Initiated/Reviewed/Updated: Yes - Assessment Assessment:: 01/26/2021 This is a 80-year-old female admitted to the floor the very [employer] hours for treatment of 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 Patient was started on a heparin drip. We will continue to monitor APTT's and adjust accordingly. She is not requiring oxygen. Today she was noting some chest pain but states she does have a history of heartburn. Troponin was negative and she was given Tums. Echocardiogram was obtained showing "1. Left ventricular ejection fraction, by visual estimation, is 60 to 65%. Normal right ventricular systolic function. 3. Right ventricular size is normal. 4. No aortic valve stenosis. 5. Mild mitral valve regurgitation. 6. Mild tricuspid valve regurgitation. 7. The right ventricular systolic pressure is mild to moderately elevated at 46.6 mmHg. 8. No regional wall motion abnormalities." We will recheck labs in the morning. Plan will be to have patient on 48 hours of heparin and then switch her to Eliquis 10 mg twice daily for 7 days. After that she will transition to 5 mg twice daily. She remains on telemetry with no telemetry calls. She was upgraded to inpatient as case management reports patient does qualify for inpatient. PT and OT did evaluate the patient and report that she is clear for home independent. Physical exam shows no signs of any distress. Lung sounds are clear in all quadrants. Cardiac exam shows normal rate and rhythm with no murmurs. Abdominal exam reveals some mild epigastric pain, which patient states is normal for her with heartburn. Normal bowel sounds. No pedal edema noted. No bruising. No changes from admission exam. She is currently on room air with saturations in the upper 90s. We will continue heparin drip as ordered. We will recheck labs in the morning. 01/27/2021 8-year-old female admitted to the floor for management of pulmonary embolism with mild right heart strain. Patient was started on a heparin drip and this continues today. This was discontinued at 1999. We will start 10 mg twice daily Eliquis tonight at 2100. This dosing should continue for a total of 7 days with 5 mg twice daily continued thereafter. She remains off of oxygen. She reports a dry cough but states her shortness of breath has greatly improved. She denies any need for cough medication. She was reporting GERD symptoms yesterday, which she states is chronic for her. Troponin was checked and was negative and this was resolved with Tums. These remain as needed. Echocardiogram was obtained as noted above. Discussed plan with patient. She [place] [facility] [place] [facility]. Plan will be to keep her until tomorrow and discharge her in the a.m. Labs today show WBC of 6.96. Hemoglobin 12.0. Hematocrit 36.7. Platelet 302,000. Neutrophils are normal at 59.9. APTT this morning was 79.8. Sodium was 142. Potassium 3.7. Chloride 103. Carbon dioxide 30. Anion gap is 12.7. BUN is 8. Creatinine 0.6. GFR is greater than 60. Glucose is 98. Calcium 8.2. Magnesium 1.8. Total bilirubin 0.4. AST was 17, ALT 15, alkaline phosphatase was 53. Protein was 5.7. Albumin 2.7. MRSA screen obtained yesterday was negative. 01/28/2021 80-year-old female admitted to the floor for management of pulmonary embolism with mild right heart strain. Patient woke up early this morning with left-sided chest pain characterized on the midclavicular line. This resolved with [place]. Vital signs were stable and she was not in any respiratory distress. It was a sharp pain. Patient was started on Eliquis 10 mg twice daily last night after having her heparin stopped. This morning patient is without any pain. She did have some dizziness secondary to [place]. Patient will stay 1 more day secondary to the occurrence of severe chest pain this morning. Patient lives alone and is at risk for not being able to get treatment if she becomes incapacitated. Review of her labs shows normal CBC, and BMP. Only thing of note is albumin that is low at 2.7. - Plan Plan:: Pt is an 80 yo female with a significant medical history of HTN and asthma who presented to the ER due to sob for a few days associated with mild cough. Assessment and plan: Acute hypoxic respiratory failure SpO2 88% in the ER Influenza A and B negative Mycoplasma negative Covid 19 negative pulse ox oxygen therapy to keep SpO2 > 94% On room air Acute pulmonary embolism with mild RV strain, RV LV ratio of 1.2 D-dimer 7.48 CTA chest - multiple bilateral pulmonary embolism Troponin < 0.017 x 2 Obtained as noted Heparin drip started in ED. On Eliquis 10 mg since the evening of 01/27/2021 Hx of asthma Continue home inhalers PRN duonebs Hypokalemia, Resolved K was supplemented Monitor DVT prophylaxis: heparin drip transitioning to Eliquis tonight Prognosis: good Disposition: Discharge home to [facility] tomorrow
[2021-01-29 07:53] VITALS: BP 135/70; PULSE 91
[2021-01-29] MEDS: Cholecalciferol (Vitamin D3) 5,000 UNIT Cap PO SCH (09:07)
[2021-01-29] MEDS: Omeprazole 20 MG Cap.CR PO SCH (09:07)
[2021-01-29] MEDS: Thiamine 100 MG Tab PO SCH (09:07)
[2021-01-29] MEDS: Apixaban 5 MG Tab PO SCH (09:07)
[2021-01-29] MEDS: ADVAIR INH SCH (09:12)
--- NOTE | 2021-01-29 09:13 | PCM.DCSUM1 ---
Discharge Summary - Hospital Course HPI Initial Comments: Pt is an 80 yo female with a significant medical history of HTN and asthma who presented to the ER due to sob for a few days associated with mild cough. She had a covid 19 test yesterday which was negative. She denies chest pain or fever/chills. In the ER, she was found to have oxygen desaturation 88%. D-dimer came back positive, 7.48. A CTA chest was performed, showing multiple bilateral pulmonary embolism with mild right heart strain. Troponin < 0.017. creatinine 0.6. Heparin drip will be started in the ER. Pt is an 80 yo female with a significant medical history of HTN and asthma who presented to the ER due to sob for a few days associated with mild cough. Assessment and plan: Acute hypoxic respiratory failure SpO2 88% in the ER Influenza A and B negative Mycoplasma negative Covid 19 negative pulse ox oxygen therapy to keep SpO2 > 94% Acute pulmonary embolism with mild RV strain, RV LV ratio of 1.2 D-dimer 7.48 CTA chest - multiple bilateral pulmonary embolism Troponin < 0.017, repeat troponin Echo Heparin drip will be started in the ER Hx of asthma Continue home inhalers HTN will continue home meds when med rec completes hydralazine prn Hypokalemia K was ordered Repeat K DVT prophylaxis: heparin drip Prognosis: good Disposition: PT OT Diagnosis: Stroke: No - Discharge Data Discharge Date: 01/29/21 Discharge Disposition: Home, Self-Care 01 Condition: Good - Referral to Home Health Primary Care Physician: Mery Armstrong HISTORY PROFESSOR - Discharge Diagnosis/Problem(s) (1) Multiple subsegmental pulmonary emboli without acute cor pulmonale SNOMED Code(s): 79695563 ICD Code: I26.94 - MULT SUBSEGMENTAL PULMON EMBOLI WITHOUT ACUTE COR PULMONALE Status: Acute Current Visit: Yes - Patient Summary/Data Consults: Consultations 01/26/21 03:00 OT Evaluation and Treatment [CONS] Routine PT Evaluation and Treatment [CONS] Routine 01/26/21 10:53 Consult to Case Management/Home Service Advisor [CONS] Routine Hospital Course: Assessment:: 01/26/2021 This is a 80-year-old female 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 Patient was started on a heparin drip. We will continue to monitor APTT's and adjust accordingly. She is not requiring oxygen. Today she was noting some chest pain but states she does have a history of heartburn. Troponin was negative and she was given Tums. Echocardiogram was obtained showing "1. Left ventricular ejection fraction, by visual estimation, is 60 to 65%. Normal right ventricular systolic function. 3. Right ventricular size is normal. 4. No aortic valve stenosis. 5. Mild mitral valve regurgitation. 6. Mild tricuspid valve regurgitation. 7. The r ight ventricular systolic pressure is mild to moderately elevated at 46.6 mmHg. 8. No regional wall motion abnormalities." We will recheck labs in the morning. Plan will be to have patient on 48 hours of heparin and then switch her to Eliquis 10 mg twice daily for 7 days. After that she will transition to 5 mg twice daily. She remains on telemetry with no telemetry calls. She was upgraded to inpatient as case management reports patient does qualify for inpatient. PT and OT did evaluate the patient and report that she is clear for home independent. Physical exam shows no signs of any distress. Lung sounds are clear in all quadrants. Cardiac exam shows normal rate and rhythm with no murmurs. Abdominal exam reveals some mild epigastric pain, which patient states is normal for her with heartburn. Normal bowel sounds. No pedal edema noted. No bruising. No changes from admission exam. She is currently on room air with saturations in the upper 90s. We will continue heparin drip as ordered. We will recheck labs in the morning. 01/27/2021 8-year-old female admitted to the floor for management of pulmonary embolism with mild right heart strain. Patient was started on a heparin drip and this continues today. This was discontinued at 1999. We will start 10 mg twice daily Eliquis tonight at 2100. This dosing should continue for a total of 7 da ys with 5 mg twice daily continued thereafter. She remains off of oxygen. She reports a dry cough but states her shortness of breath has greatly improved. She denies any need for cough medication. She was reporting GERD symptoms yesterday, which she states is chronic for her. Troponin was checked and was negative and this was resolved with Tums. These remain as needed. Echocardiogram was obtained as noted above. Discussed plan with patient. She lives alone at a cottage at [facility]. Plan will be to keep her until tomorrow and discharge her in the a.m. Labs today show WBC of 6.96. Hemoglobin 12.0. Hematocrit 36.7. Platelet 302,000. Neutrophils are normal at 59.9. APTT this morning was 79.8. Sodium was 142. Potassium 3.7. Chloride 103. Carbon dioxide 30. Anion gap is 12.7. BUN is 8. Creatinine 0.6. GFR is greater than 60. Glucose is 98. Calcium 8.2. Magnesium 1.8. Total bilirubin 0.4. AST was 17, ALT 15, alkaline phosphatase was 53. Protein was 5.7. Albumi n 2.7. MRSA screen obtained yesterday was negative. 01/28/2021 80-year-old female admitted to the floor for management of pulmonary embolism with mild right heart strain. Patient woke up early this morning with left-sided chest pain characterized on the midclavicular line. This resolved with [place]. Vital signs were stable and she was not in any respiratory distress. It was a sharp pain. Patient was started on Eliquis 10 mg twice daily last night after having her heparin stopped. This morning patient is without any pain. She did have some dizziness secondary to [place]. Patient will stay 1 more day secondary to the occurrence of severe chest pain this morning. Patient lives alone and is at risk for not being able to get treatment if she becomes incapacitated. Review of her labs shows normal CBC, and BMP. Only thing of note is albumin that is low at 2.7. 01/29/2021 Patient continues to do well. She will finish off 7 days of Eliquis 10 mg twice daily and then reduce to 5 mg twice daily. She did have the prescription picked up by a family member. She did have some pain last night that resolved with [id number] Tylenol. Follow-up with primary care provider. - Plan Plan:: Pt is an 80 yo female with a significant medical history of HTN and asthma who presented to the ER due to sob for a few days associated with mild cough. Assessment and plan: Acute hypoxic respiratory failure SpO2 88% in the ER Influenza A and B negative Mycoplasma negative Covid 19 negative pulse ox oxygen therapy to keep SpO2 > 94% On room air Acute pulmonary embolism with mild RV strain, RV LV ratio of 1.2 D-dimer 7.48 CTA chest - multiple bilateral pulmonary embolism Troponin < 0.017 x 2 Obtained as noted Heparin drip started in ED. On Eliquis 10 mg since the evening of 01/27/2021 Hx of asthma Continue home inhalers PRN duonebs Hypokalemia, Resolved K was supplemented Monitor DVT prophylaxis: heparin drip transitioning to Eliquis tonight Prognosis: good Disposition: Discharge home to [facility] tomorrow - Patient Instructions Diet: Usual Diet as Tolerated Driving: Do Not Drive Showering/Bathing: May Shower Other/Special Instructions: Follow-up with primary care provider next week. Please consider getting the COVID-19 vaccination because you are at much greater risk of complications due to the pulmonary embolus. - Discharge Plan *PRESCRIPTION DRUG MONITORING PROGRAM REVIEWED*: No *COPY OF PRESCRIPTION DRUG MONITORING REPORT IN PATIENT JASON: No Prescriptions/Med Rec: Apixaban [Eliquis] 10 mg PO BID #70 tablet Home Medications: Home Meds Fluticasone/Salmeterol [Advair 100-50] 1 puff INH DAILY 07/09/13 [History] Omeprazole 20 mg PO DAILY 07/09/13 [History] Cholecalciferol (Vitamin D3) [Vitamin D] 1 tab PO DAILY 12/30/16 [History] Non-Formulary Medication [NF Drug] 1 tab PO DAILY PRN 01/26/21 [History] Saliva Stimulant Comb. No.7 [Biotene Oralbalance] 1 tab PO DAILY 01/26/21 [History] Thiamine HCl [Vitamin B-1] 1 tab PO DAILY 01/26/21 [History] Vitamin D3/Vitamin K2 (Mk4) [K2 Plus D3 Tablet] 1 tab PO DAILY 01/26/21 [History] Vitamin E 400 unit PO DAILY 01/26/21 [History] Zinc 50 mg PO DAILY 01/26/21 [History] Apixaban [Eliquis] 10 mg PO BID #70 tablet 01/28/21 [Rx] Oxygen Therapy Mode: Room Air Patient Handouts: Pulmonary Embolism, Apixaban oral tablets Forms: ED Department Discharge Referrals: eMry Armstrong HISTORY PROFESSOR [Primary Care Provider] - 02/06/21 10:40 am (Please arrive at 10:40 for check in) - Discharge Summary/Plan Comment DC Time >30 min.: Yes Total # of Minutes for Discharge Time: 35 - General Info Date of Service: 01/29/21 Admission Dx/Problem (Free Text: Admission Diagnosis/Problem Admission Diagnosis/Problem Pulmonary embolism Subjective Update: Patient is feeling well this morning. She did have some pain last night that resolved with Tylenol. Functional Status: Reports: Pain Controlled - Review of Systems General: Reports: No Symptoms HEENT: Reports: No Symptoms Pulmonary: Reports: No Symptoms Cardiovascular: Reports: No Symptoms Gastrointestinal: Reports: No Symptoms Musculoskeletal: Reports: No Symptoms - Patient Data Vitals - Most Recent: Last Vital Signs Temp 97.5 F 01/29/21 07:51 Pulse 91 01/29/21 07:51 Resp 15 01/29/21 07:51 BP 135/70 01/29/21 07:51 Pulse Ox 94 L 01/29/21 09:12 Weight - Most Recent: 130 lb 8 oz I&O - Last 24 hours: Intake & Output 01/28/21 01/29/21 01/29/21 22:59 06:59 14:59 Intake Total 500 300 Balance 500 300 Lab Results - Last 24 hrs: Laboratory Results - last 24 hr 01/29/21 01/29/21 Range/Units 06:05 06:05 WBC 7.87 (3.98-10.04) K/mm3 RBC 4.23 (3.98-5.22) M/mm3 Hgb 12.8 (11.2-15.7) gm/dl Hct 39.3 (34.1-44.9) % MCV 92.9 (79.4-94.8) fl MCH 30.3 (25.6-32.2) pg MCHC 32.6 (32.2-35.5) g/dl RDW Std Deviation 41.6 (36.4-46.3) fL Plt Count 359 (182-369) K/mm3 MPV 9.2 L (9.4-12.3) fl Neut % (Auto) 69.7 (34.0-71.1) % Lymph % (Auto) 17.9 L (19.3-51.7) % [place] % (Auto) 10.4 (4.7-12.5) % Eos % (Auto) 1.3 (0.7-5.8) Baso % (Auto) 0.6 (0.1-1.2) % Neut # (Auto) 5.48 (1.56-6.13) K/mm3 Lymph # (Auto) 1.41 (1.18-3.74) K/mm3 [place] # (Auto) 0.82 H (0.24-0.36) K/mm3 Eos # (Auto) 0.10 (0.04-0.36) K/mm3 Baso # (Auto) 0.05 (0.01-0.08) K/mm3 Sodium 141 (136-145) mEq/L Potassium 3.5 (3.5-5.1) mEq/L Chloride 102 (98-107) mEq/L Carbon Dioxide 28 (21-32) mEq/L Anion Gap 14.5 (5-15) BUN 9 (7-18) mg/dL Creatinine 0.6 (0.55-1.02) mg/dL Est Cr Clr Drug Dosing 53.71 mL/min Estimated GFR (MDRD) > 60 (>60) mL/min BUN/Creatinine Ratio 15.0 (14-18) Glucose 101 H (70-99) mg/dL Calcium 8.6 (8.5-10.1) mg/dL Total Bilirubin 0.4 (0.2-1.0) mg/dL AST 14 L (15-37) U/L ALT 16 (14-59) U/L Alkaline Phosphatase 58 (46-116) U/L Total Protein 6.4 (6.4-8.2) g/dl Albumin 3.1 L (3.4-5.0) g/dl Globulin 3.3 gm/dL Albumin/Globulin Ratio 0.9 L (1-2) Med Orders - Current: Current Medications Acetaminophen (Acetaminophen 325 Mg Tab) 650 mg PO Q6H PRN PRN Reason: Pain (Mild 1-3)/fever Last Admin: 01/29/21 05:56 Dose: 650 mg Documented by: Hydrocodone Bitart/Acetaminophen (Acetaminophen/Hydrocodone 325-5 Mg Tab) 1 tab PO Q6H PRN PRN Reason: Pain (severe 7-10) Last Admin: 01/28/21 01:27 Dose: 1 tab Documented by: Albuterol/Ipratropium (Albuterol/Ipratropium 3.0-0.5 Mg/3 Ml Neb Soln) 3 ml NEB Q4H PRN PRN Reason: Shortness Of Breath/wheezing Last Admin: 01/26/21 20:49 Dose: 3 ml Documented by: Apixaban (Apixaban 5 Mg Tab) 10 mg PO BID [facility] Stop: 02/03/21 09:01 Last Admin: 01/29/21 09:07 Dose: 10 mg Documented by: Calcium Carbonate/Glycine (Calcium Carbonate 500 Mg Tab.Chew) 1,000 mg PO Q2H PRN PRN Reason: Indigestion Cholecalciferol (Cholecalciferol (Vitamin D3) 5,000 Unit Cap) 5,000 unit PO DAILY [facility] Last Admin: 01/29/21 09:07 Dose: 5,000 unit Documented by: Hydralazine HCl (Hydralazine 20 Mg/Ml Sdv) 10 mg IVPUSH Q4H PRN PRN Reason: Hypertension Promethazine HCl 6.25 mg/ (Sodium Chloride) 50.25 mls @ 100 mls/hr IV Q6H PRN PRN Reason: Nausea/Vomiting Advair Diskus 100/50 (- Pt's Own Med) 0 each INH BID [facility] Last Admin: 01/29/21 09:12 Dose: 1 each Documented by: Omeprazole (Omeprazole 20 Mg Cap.Cr) 20 mg PO BID [facility] Last Admin: 01/29/21 09:07 Dose: 20 mg Documented by: Thiamine HCl (Thiamine 100 Mg Tab) 100 mg PO DAILY [facility] Last Admin: 01/29/21 09:07 Dose: 100 mg Documented by: Discontinued Medications Albuterol/Ipratropium (Albuterol/Ipratropium 3.0-0.5 Mg/3 Ml Neb Soln) 3 ml NEB ONETIME ONE Stop: 01/25/21 22:28 Last Admin: 01/25/21 22:44 Dose: 3 ml Documented by: Albuterol/Ipratropium (Albuterol/Ipratropium 3.0-0.5 Mg/3 Ml Neb Soln) Confirm Administered Dose 3 ml .ROUTE .STK-MED ONE Stop: 01/25/21 22:42 Last Admin: 01/26/21 00:23 Dose: Not Given Documented by: Calcium Carbonate/Glycine (Calcium Carbonate 500 Mg Tab.Chew) 1,000 mg PO ONETIME ONE Stop: 01/26/21 11:36 Last Admin: 01/26/21 19:40 Dose: Not Given Documented by: Heparin Sodium (Porcine) (Heparin Sodium 5,000 Units/Ml Vial) 5,000 units IVPUSH .BOLUS ONE Stop: 01/26/21 03:21 Last Admin: 01/26/21 03:31 Dose: 5,000 units Documented by: Sodium Chloride (Normal Saline) 500 mls @ 999 mls/hr IV .BOLUS ONE Stop: 01/26/21 00:27 Last Admin: 01/26/21 00:23 Dose: 999 mls/hr Documented by: Sodium Chloride (Normal Saline) Confirm Administered Dose 1,000 mls @ as directed .ROUTE .STK-MED ONE Stop: 01/26/21 00:20 Last Admin: 01/26/21 04:26 Dose: Not Given Documented by: Heparin Sodium/Dextrose (Heparin 25,000 Units In D5w 500 Ml) 25,000 units in 500 mls @ 21.2 mls/hr IV TITRATE DIAMOND; Protocol Last Titration: 01/26/21 21:31 Dose: 21.2 mls/hr, 21.2 mls/hr Documented by: Heparin Sodium/Dextrose (Heparin 25,000 Units In D5w 500 Ml) 25,000 units in 500 mls @ 21.2 mls/hr IV TITRATE DIAMOND; Protocol Stop: 01/27/21 20:00 Last Titration: 01/27/21 07:55 Dose: 18.8 mls/hr Documented by: Mometasone Furoate/Formoterol Fumar (Formoterol/Mometasone 100-5 Mcg 8.8 Gm Inhaler) 2 puff IH BID [facility] Last Admin: 01/26/21 08:24 Dose: Not Given Documented by: Morphine Sulfate (Morphine 2 Mg/Ml Syringe) 2 mg IVPUSH Q4H PRN PRN Reason: Pain (severe 7-10) Stop: 01/27/21 03:06 Pantoprazole Sodium (Pantoprazole 40 Mg Tab.Cr) 40 mg PO DAILY@0700 [facility] Last Admin: 01/26/21 08:46 Dose: 40 mg Documented by: - Exam Quality Assessment: Denies: Supplemental Oxygen General: Reports: Alert, Oriented HEENT: Reports: Pupils Equal, Mucous Membr. Moist/[place] Neck: Reports: Supple Lungs: Reports: Clear to Auscultation, Normal Respiratory Effort Cardiovascular: Reports: Regular Rate, Regular Rhythm GI/Abdominal Exam: Normal Bowel Sounds, Soft, Non-Tender, No Organomegaly, No Distention, No Abnormal Bruit, No Mass Back Exam: Reports: Normal Inspection, Full Range of Motion Extremities: Normal Inspection, Normal Range of Motion, Non-Tender, No Pedal Edema, Normal Capillary Refill Skin: Reports: Warm, Dry, Intact Psy/Mental Status: Reports: Alert, Normal Affect, Normal Mood
== END 2021-01-29 13:52 | disposition home or self-care (01) | DRG 175 ==
LOC: JD.ED 21:31 → JD.MS 01-26 03:01 → OBSVTOIN 01-26 09:25 → JD.OB 01-27 19:49 → JD.MS 01-29 13:50 → UNDODISIN 01-29 13:52
PROVIDERS: ADMIT Internal Medicine; ATTEND Internal Medicine
DX: I26.94 Multiple subsegmental thrombotic pulmonary emboli without acute cor pulmonale (principal); J96.01 Acute respiratory failure with hypoxia; H54.7 Unspecified visual loss; E78.00 Pure hypercholesterolemia, unspecified; I10 Essential (primary) hypertension; E87.6 Hypokalemia; I08.1 Rheumatic disorders of both mitral and tricuspid valves; J45.909 Unspecified asthma, uncomplicated; K21.9 Gastro-esophageal reflux disease without esophagitis; K44.9 Diaphragmatic hernia without obstruction or gangrene; Z98.49 Cataract extraction status, unspecified eye; Z90.710 Acquired absence of both cervix and uterus; R32 Unspecified urinary incontinence; Z88.0 Allergy status to penicillin; Z90.49 Acquired absence of other specified parts of digestive tract; Z88.8 Allergy status to other drugs, medicaments and biological substances; Z79.899 Other long term (current) drug therapy; Z20.822 Contact with and (suspected) exposure to COVID-19
CPT/HCPCS: 0240U; 36415; 71275; 80053; 83735; 84484; 85025; 85379; 85610; 85730; 86140; 86738; 87641; 93005; 93306; 94640; 94760; 94762; 96374; 97161; 99285; 71045; 71045-26; 99232; 99239; A9270-GY; J1644; J7030; J7620-GY

== ENCOUNTER 2021-06-01 09:29 | Emergency (ER) | payer MEDICARE, BC ==
[2021-06-01] MEDS ORDERED: Morphine 2 MG/ML SYRINGE IVPUSH ONE (09:50)
[2021-06-01 09:58] VITALS: BP 164/109; PULSE 82
[2021-06-01] MEDS ORDERED: Ondansetron 4 MG/2 ML SDV IVPUSH ONE (10:23)
== END 2021-06-01 12:30 | disposition home or self-care (01) ==
LOC: JD.ED 09:29
DX: S42.202A Unspecified fracture of upper end of left humerus, initial encounter for closed fracture (principal); S00.83XA Contusion of other part of head, initial encounter; E78.00 Pure hypercholesterolemia, unspecified; K21.9 Gastro-esophageal reflux disease without esophagitis; Z79.01 Long term (current) use of anticoagulants; Z88.0 Allergy status to penicillin; Z88.7 Allergy status to serum and vaccine; Z88.8 Allergy status to other drugs, medicaments and biological substances; Z79.899 Other long term (current) drug therapy; W22.09XA Striking against other stationary object, initial encounter
CPT/HCPCS: 36415; 70450; 72125; 73030; 80053; 85025; 85610; 96374; 96375; 99284; J2270; J2405

== ENCOUNTER 2022-04-20 21:04 | Emergency (ER) | payer MEDICARE, BC ==
[2022-04-20 21:27] VITALS: BP 146/99; PULSE 98
== END 2022-04-20 23:00 | disposition home or self-care (01) ==
LOC: JD.ED 21:04
DX: R07.89 Other chest pain (principal); M79.602 Pain in left arm; K21.9 Gastro-esophageal reflux disease without esophagitis; I26.99 Other pulmonary embolism without acute cor pulmonale; E78.00 Pure hypercholesterolemia, unspecified; Z79.899 Other long term (current) drug therapy; Z79.01 Long term (current) use of anticoagulants; Z88.0 Allergy status to penicillin; Z88.7 Allergy status to serum and vaccine; Z88.8 Allergy status to other drugs, medicaments and biological substances
CPT/HCPCS: 36415; 71045; 71045-26; 80053; 84484; 85025; 93005; 93010; 99284

== ENCOUNTER 2022-12-18 07:28 | Day surgery (SDC) | payer MEDICARE, BC ==
[2022-12-18] MEDS ORDERED: Albuterol 0.083% 2.5 MG/3 ML Neb Soln NEB SCH (07:37)
[2022-12-18] MEDS ORDERED: Lactated Ringers 1,000 ML IV SCH (08:00)
[2022-12-18] MEDS ORDERED: Propofol 200 MG/20 ML SDV ONE ×2 (08:27→09:21)
[2022-12-18] MEDS ORDERED: Lidocaine 1% 4 ML ONE (08:27)
[2022-12-18 10:34] VITALS: BP 135/76; PULSE 76
== END 2022-12-18 10:29 | disposition home or self-care (01) ==
LOC: JD.SDS 07:28
PROVIDERS: ATTEND Surgery
DX: D12.2 Benign neoplasm of ascending colon (principal); K31.7 Polyp of stomach and duodenum; K44.9 Diaphragmatic hernia without obstruction or gangrene; K57.30 Diverticulosis of large intestine without perforation or abscess without bleeding; K64.8 Other hemorrhoids; J44.9 Chronic obstructive pulmonary disease, unspecified; K21.9 Gastro-esophageal reflux disease without esophagitis; I10 Essential (primary) hypertension; E78.00 Pure hypercholesterolemia, unspecified; J45.40 Moderate persistent asthma, uncomplicated; Z88.0 Allergy status to penicillin; Z79.01 Long term (current) use of anticoagulants; Z79.899 Other long term (current) drug therapy; Z88.7 Allergy status to serum and vaccine; Z88.8 Allergy status to other drugs, medicaments and biological substances
CPT/HCPCS: 43251; 45385; J2704; J7120; J3490; J7620-GY

== ENCOUNTER 2023-03-03 15:11 | Emergency (ER) | payer MEDICARE, BC ==
[2023-03-03] MEDS ORDERED: Sodium Chloride 0.9% 10 ML Syringe FLUSH PRN (15:29)
[2023-03-03] MEDS ORDERED: Aspirin 81 MG Tab.Chew PO ONE (15:29)
[2023-03-03] MEDS ORDERED: Iopamidol 755 Mg/ML 100 ML Bottle IVPUSH ONE (15:53)
[2023-03-03 15:55] LABS: BASOPHILS ABSOLUTE AUTO 0.1 K/mm3 (0.0-0.2); BASOPHILS PERCENT AUTO 0.8 % (0.0-1.0); EOSINOPHILS ABSOLUTE AUTO 0.1 K/mm3 (0.0-0.4); EOSINOPHILS PERCENT AUTO 1.2 % (0.0-6.0); HEMATOCRIT 41.9 % (37.0-47.0); HEMOGLOBIN 13.9 gm/dl (12.0-16.0); IMMATURE GRAN ABSOLUTE AUTO 0.02 K/mm3 (0.00-0.05); IMMATURE GRAN PERCENT AUTO 0.3 % (0.0-0.4); LYMPHOCYTES PERCENT AUTO 30.9 % (24.0-44.0); MEAN CORPUSCULAR HEMOGLOBIN 31.5 pg (28.0-32.0); MEAN CORPUSCULAR HGB CONC 33.2 g/dl (32.0-36.0); MEAN PLATELET VOLUME 8.9 fl (9.4-12.3); MONOCYTES ABSOLUTE AUTO 0.5 K/mm3 (0.0-0.8); MONOCYTES PERCENT AUTO 7.9 % (0.0-8.0); NEUTROPHILS ABSOLUTE AUTO 3.9 K/mm3 (1.8-7.7); NEUTROPHILS PERCENT AUTO 58.9 % (41.0-71.0); PLATELET COUNT,PLT 305 K/mm3 (150-400); RED BLOOD CELL COUNT 4.41 M/mm3 (4.10-5.30); WHITE BLOOD CELL COUNT,WBC 6.56 K/mm3 (3.9-11.3)
[2023-03-03] MEDS ORDERED: Sodium Chloride 0.9% 100 ML IV SCH (16:00)
[2023-03-03 16:14] LABS: D-DIMER QUANTITATIVE 0.35 mg/L (0.19-0.50); INR 0.99; PROTHROMBIN TIME 10.6 SECONDS (9.7-12.0)
[2023-03-03 16:25] LABS: A/G RATIO 0.9 (1-2); ALBUMIN 3.5 g/dl (3.4-5.0); BILIRUBIN TOTAL 0.5 mg/dL (0.2-1.0); BUN/CREATININE RATIO 8.9 (14-18); CALCIUM 9.3 mg/dL (8.5-10.1); CREATININE 0.9 mg/dL (0.55-1.02); EST CRCL DRUG DOSING (CG) 34.62 mL/min; MAGNESIUM 1.7 mg/dL (1.8-2.4); PROTEIN TOTAL,TP 7.4 g/dl (6.4-8.2)
[2023-03-03 19:46] VITALS: BP 165/81; PULSE 81
== END 2023-03-03 19:40 | disposition home or self-care (01) ==
LOC: JD.ED 15:11
DX: K44.9 Diaphragmatic hernia without obstruction or gangrene (principal); M54.6 Pain in thoracic spine; I10 Essential (primary) hypertension; J44.9 Chronic obstructive pulmonary disease, unspecified; K21.9 Gastro-esophageal reflux disease without esophagitis; Z90.49 Acquired absence of other specified parts of digestive tract; Z90.710 Acquired absence of both cervix and uterus; Z88.0 Allergy status to penicillin; Z88.7 Allergy status to serum and vaccine; Z88.8 Allergy status to other drugs, medicaments and biological substances; Z79.01 Long term (current) use of anticoagulants; Z79.899 Other long term (current) drug therapy
CPT/HCPCS: 36415; 71045; 71275; 80053; 83735; 83880; 84484; 85025; 85379; 85610; 93005; 99285; A9270; J3490; Q9967

== ENCOUNTER 2023-04-06 17:48 | Emergency (ER) | payer MEDICARE, BC ==
[2023-04-06 17:58] VITALS: PULSE 85
[2023-04-06] MEDS ORDERED: Cyclobenzaprine 10 MG Tab PO ONE (18:11)
[2023-04-06] MEDS ORDERED: Acetaminophen 325 MG Tab PO ONE (18:12)
[2023-04-06 22:20] VITALS: BP 136/74
== END 2023-04-06 19:30 | disposition home or self-care (01) ==
LOC: JD.ED 17:48
DX: R07.81 Pleurodynia (principal); I10 Essential (primary) hypertension; K21.9 Gastro-esophageal reflux disease without esophagitis; Z88.0 Allergy status to penicillin; Z88.7 Allergy status to serum and vaccine; Z88.8 Allergy status to other drugs, medicaments and biological substances; Z90.49 Acquired absence of other specified parts of digestive tract; Z90.710 Acquired absence of both cervix and uterus; Z79.899 Other long term (current) drug therapy
CPT/HCPCS: 71046; 93005; 99285; A9270

== ENCOUNTER 2023-04-12 17:37 | Inpatient (IN) | payer MEDICARE, BC ==
[2023-04-12] MEDS: HYDROmorphone 0.5 MG/0.5 ML Syringe IVPUSH ONE (18:10)
[2023-04-12] MEDS: Ondansetron 4 MG/2 ML SDV IVPUSH ONE ×2 (18:10→20:06)
[2023-04-12] MEDS: Sodium Chloride 0.9% 10 ML Syringe FLUSH PRN (18:10)
[2023-04-12] MEDS: Sodium Chloride 0.9% 1,000 ML IV STA (18:10)
[2023-04-12 18:32] LABS: BASOPHILS ABSOLUTE AUTO 0.1 K/mm3 (0.0-0.2); BASOPHILS PERCENT AUTO 0.8 % (0.0-1.0); EOSINOPHILS ABSOLUTE AUTO 0.2 K/mm3 (0.0-0.4); EOSINOPHILS PERCENT AUTO 2.2 % (0.0-6.0); HEMATOCRIT 40.7 % (37.0-47.0); HEMOGLOBIN 13.7 gm/dl (12.0-16.0); IMMATURE GRAN ABSOLUTE AUTO 0.03 K/mm3 (0.00-0.05); IMMATURE GRAN PERCENT AUTO 0.4 % (0.0-0.4); LYMPHOCYTES ABSOLUTE AUTO 1.6 K/mm3 (1.0-4.8); LYMPHOCYTES PERCENT AUTO 21.7 % (24.0-44.0); MEAN CORPUSCULAR HEMOGLOBIN 31.6 pg (28.0-32.0); MEAN CORPUSCULAR HGB CONC 33.7 g/dl (32.0-36.0); MEAN CORPUSCULAR VOLUME 93.8 fl (83.0-99.0); MONOCYTES ABSOLUTE AUTO 0.7 K/mm3 (0.0-0.8); MONOCYTES PERCENT AUTO 8.9 % (0.0-8.0); NEUTROPHILS ABSOLUTE AUTO 4.8 K/mm3 (1.8-7.7); PLATELET COUNT,PLT 326 K/mm3 (150-400); RED BLOOD CELL COUNT 4.34 M/mm3 (4.10-5.30); WHITE BLOOD CELL COUNT,WBC 7.32 K/mm3 (3.9-11.3)
[2023-04-12 18:55] LABS: A/G RATIO 0.9 (1-2); ALBUMIN 3.4 g/dl (3.4-5.0); ANION GAP 15.2 (5-15); BILIRUBIN TOTAL 0.5 mg/dL (0.2-1.0); C-REACTIVE PROTEIN 0.4 mg/dL (<1.0); CALCIUM 9.1 mg/dL (8.5-10.1); CREATININE 0.6 mg/dL (0.55-1.02); EST CRCL DRUG DOSING (CG) 51.92 mL/min; PROTEIN TOTAL,TP 7.3 g/dl (6.4-8.2)
[2023-04-12 18:58] LABS: POTASSIUM,K 4.2 mEq/L (3.5-5.1)
[2023-04-12] MEDS: Sodium Chloride 0.9% 10 ML Syringe FLUSH ONE (19:40)
[2023-04-12] MEDS: Iopamidol 612 MG/ML 100 ML Bottle IVPUSH ONE ×2 (19:40)
[2023-04-12 20:59] LABS: APPEARANCE,URINE CLEAR (Clear); BILIRUBIN,URINE NEGATIVE (Negative); COLOR,URINE YELLOW (Yellow); GLUCOSE,URINE NEGATIVE (Negative); KETONES,URINE 1+ (Negative); LEUKOCYTE ESTERASE,URINE TRACE (Negative); NITRITE,URINE NEGATIVE (Negative); OCCULT BLOOD,URINE TRACE-INTACT (Negative); PROTEIN,URINE NEGATIVE (Negative); UROBILINOGEN,URINE 0.2 (0.2-1.0)
[2023-04-12] MEDS: Metoclopramide 10 MG/2 ML SDV IVPUSH ONE (21:02)
[2023-04-12] MEDS: traMADol 50 MG Tab PO ONE (21:03)
[2023-04-12 21:18] LABS: BACTERIA,URINE FEW /hpf (FEW); MUCUS,URINE FEW /hpf (FEW); RBC,URINE 0-5 /hpf (0-5); SQUAMOUS EPITHELIAL CELLS,UR 0-5 /hpf (0-5); WBC,URINE 20-30 /hpf (0-5)
[2023-04-12] MEDS: Orphenadrine 100 MG Tab.ER PO ONE (23:31)
[2023-04-13] MEDS ORDERED: Albuterol 6.7 GM Inhaler INH PRN (08:47)
[2023-04-13] MEDS: traMADol 50 MG Tab PO PRN (09:01)
[2023-04-13] MEDS: Ondansetron 4 MG Tab.DIS PO PRN (09:03)
[2023-04-13] MEDS ORDERED: Sennosides/Docusate Sodium 50-8.6 MG Tab PO PRN (09:22)
[2023-04-13] MEDS ORDERED: Methocarbamol 500 MG Tab PO PRN (09:23)
[2023-04-13] MEDS ORDERED: Pantoprazole 40 MG Tab.CR PO SCH (09:30)
[2023-04-13] MEDS: Levofloxacin/Dextrose 5%-Water 500 MG in Premix Bag 1 BAG IV ONE (10:03)
[2023-04-13] MEDS: Formoterol/Mometasone 200-5 MCG 8.8 GM Inhaler IH SCH (11:04)
[2023-04-13] MEDS: Pantoprazole 40 MG Tab.CR PO SCH (12:32)
[2023-04-13] MEDS: Apixaban 5 MG Tab PO SCH (12:33)
[2023-04-13] MEDS: Multivitamin Tab PO SCH (12:34)
[2023-04-13] MEDS: Metoprolol Tartrate 25 MG Tab PO SCH (12:34)
[2023-04-13] MEDS: Lidocaine 4% 1 each Patch TOP SCH (12:35)
[2023-04-13] MEDS: Pantoprazole 40 MG Vial IVPUSH SCH (12:48)
[2023-04-13] MEDS: Dextrose 5%-0.45% NaCl 1,000 ML IV SCH (12:48)
[2023-04-13] MEDS: Ondansetron 4 MG/2 ML SDV IVPUSH PRN (15:50)
[2023-04-13] MEDS ORDERED: Non-Formulary Medication 1 Each (Biotin [Biotin] 5 MG Capsule) PO SCH (21:00)
[2023-04-13] MEDS: Doxycycline 100 MG in Sodium Chloride 0.9% 100 ML IV SCH (21:04)
[2023-04-14] MEDS ORDERED: Levofloxacin/Dextrose 5%-Water 250 MG in Premix Bag 1 BAG IV SCH (09:00)
[2023-04-15] MEDS: HYDROmorphone 0.5 MG/0.5 ML Syringe IVPUSH PRN (01:02)
[2023-04-15 06:02] LABS: BASOPHILS ABSOLUTE AUTO 0.1 K/mm3 (0.0-0.2); BASOPHILS PERCENT AUTO 1.1 % (0.0-1.0); EOSINOPHILS ABSOLUTE AUTO 0.2 K/mm3 (0.0-0.4); HEMATOCRIT 35.9 % (37.0-47.0); IMMATURE GRAN ABSOLUTE AUTO 0.02 K/mm3 (0.00-0.05); IMMATURE GRAN PERCENT AUTO 0.4 % (0.0-0.4); LYMPHOCYTES ABSOLUTE AUTO 1.3 K/mm3 (1.0-4.8); LYMPHOCYTES PERCENT AUTO 23.2 % (24.0-44.0); MEAN CORPUSCULAR HEMOGLOBIN 31.7 pg (28.0-32.0); MEAN CORPUSCULAR HGB CONC 33.7 g/dl (32.0-36.0); MEAN PLATELET VOLUME 9.1 fl (9.4-12.3); MONOCYTES ABSOLUTE AUTO 0.6 K/mm3 (0.0-0.8); MONOCYTES PERCENT AUTO 9.8 % (0.0-8.0); NEUTROPHILS ABSOLUTE AUTO 3.5 K/mm3 (1.8-7.7); NEUTROPHILS PERCENT AUTO 61.5 % (41.0-71.0); PLATELET COUNT,PLT 293 K/mm3 (150-400); RED BLOOD CELL COUNT 3.82 M/mm3 (4.10-5.30)
[2023-04-15 06:13] LABS: HEMOGLOBIN 12.1 gm/dl (12.0-16.0)
[2023-04-15 06:23] LABS: ANION GAP 9.2 (5-15); CALCIUM 8.4 mg/dL (8.5-10.1); CREATININE 0.5 mg/dL (0.55-1.02); EST CRCL DRUG DOSING (CG) 62.31 mL/min; POTASSIUM,K 3.2 mEq/L (3.5-5.1)
[2023-04-15] MEDS: Potassium Chloride 20 MEQ Tab.ER PO ONE ×2 (09:44→21:11)
[2023-04-15] MEDS ORDERED: oxyCODONE 5 MG Tab PO PRN (10:09)
[2023-04-15] MEDS ORDERED: Polyethylene Glycol 3350 Powder 17 GM Packet PO PRN (10:12)
[2023-04-15] MEDS: Acetaminophen 325 MG Tab PO SCH (11:54)
[2023-04-15] MEDS: Docusate Sodium 100 MG Cap PO SCH (11:55)
[2023-04-15] MEDS: Pantoprazole 40 MG Tab.CR PO SCH (16:33)
[2023-04-16] MEDS ORDERED: Pantoprazole 40 MG Tab.CR PO SCH (09:00)
[2023-04-16 11:29] LABS: ANION GAP 11.4 (5-15); BUN/CREATININE RATIO 13.3 (14-18); CALCIUM 9.2 mg/dL (8.5-10.1); CREATININE 0.6 mg/dL (0.55-1.02); EST CRCL DRUG DOSING (CG) 51.92 mL/min; MAGNESIUM 1.4 mg/dL (1.8-2.4); POTASSIUM,K 4.4 mEq/L (3.5-5.1)
[2023-04-16 12:28] VITALS: BP 133/93; PULSE 72
[2023-04-16] MEDS: Magnesium Sulfate/Water 2 GM in Premix Bag 1 BAG IV ONE (13:32)
== END 2023-04-16 17:36 | disposition home or self-care (01) | DRG 552 ==
LOC: JD.ED 17:37 → JD.MS 23:08 → OBSVTOIN 04-14 16:30
PROVIDERS: ADMIT Internal Medicine; ATTEND Internal Medicine
DX: S22.000A Wedge compression fracture of unspecified thoracic vertebra, initial encounter for closed fracture (principal); S22.050A Wedge compression fracture of T5-T6 vertebra, initial encounter for closed fracture; N30.00 Acute cystitis without hematuria; S22.060A Wedge compression fracture of T7-T8 vertebra, initial encounter for closed fracture; Z66 Do not resuscitate; Z88.7 Allergy status to serum and vaccine; J44.9 Chronic obstructive pulmonary disease, unspecified; K44.9 Diaphragmatic hernia without obstruction or gangrene; K21.9 Gastro-esophageal reflux disease without esophagitis; J45.20 Mild intermittent asthma, uncomplicated; E87.6 Hypokalemia; E83.42 Hypomagnesemia; I10 Essential (primary) hypertension; E78.00 Pure hypercholesterolemia, unspecified; Z88.0 Allergy status to penicillin; Z88.8 Allergy status to other drugs, medicaments and biological substances; Z79.01 Long term (current) use of anticoagulants; Z86.711 Personal history of pulmonary embolism; Z79.899 Other long term (current) drug therapy; Z90.710 Acquired absence of both cervix and uterus; Z90.721 Acquired absence of ovaries, unilateral; Z98.49 Cataract extraction status, unspecified eye; Z90.49 Acquired absence of other specified parts of digestive tract; Z90.89 Acquired absence of other organs; Z86.010 Personal history of colon polyps; Z98.890 Other specified postprocedural states; X58.XXXA Exposure to other specified factors, initial encounter
CPT/HCPCS: 36415; 71260; 74177; 80053; 81001; 83690; 85025; 86140; 87086; 94640 ×3; A9270 ×5; C9113 ×2; J1170; J1956; J2405 ×4; J2765; J3490 ×6; J7030; J7042 ×3; Q9967; 80048; 83735; 94760; 94761; 97110-GP; 97162-GP; 99284; J3475